=== PATIENT | male | born 1990 | race Caucasian/White ===

== ENCOUNTER 2017-09-03 05:35 | Emergency (ER) | payer SELFPAY ==
[~2017-09-03] VITALS: Ht 182.9 cm; Wt 127.0 kg
[~2017-09-03 05:35] MED LIST: ALBU2.5V4; CEFD300C3 PO; CODE118S2 PO; SLMFT1E INH
[2017-09-03] MEDS: NS IV 1000 ML 1,000 ML IV SCH ×3 (05:35→06:50)
--- OUTSIDE RECORDS SUMMARY | 2017-09-03 05:39 | XMS REPORT | Referral Summary ---
Author Author [facility] Organization [facility] Address Unknown Phone Unavailable Care Team Providers Care Manager Baby Name Role Phone No PCP, Pt States PCP Encounter [facility] [id number] Date(s): 05/09/16 - 05/09/16 [facility] [address] [place], [place] [address] Discharge Diagnosis: Conductive hearing loss of left ear Discharge Diagnosis: Central perforation of tympanic membrane of left ear Discharge Disposition: 01-Home or Self Care Attending Physician: Eliceo Monique MD Admitting Physician: Eliceo Monique MD Vital Signs Most recent to 1 oldest [Reference Range]: Temperature Tympanic 36.8 degC [36.6-38.1 degC] (05/09/16 1:22 PM) Problem List No data available for this section Allergies, Adverse Reactions, Alerts Substance Reaction Severity Status Keflex1 Severe Active 1Hives Medications Singulair 10 mg oral tablet 10 mg 1 tabs, Oral, qPM, # 30 tabs, 0 Refill(s) Start Date: 05/09/16 Status: Ordered Results No data available for this section Immunizations No data available for this section Procedures Procedure Date Related Diagnosis Body Site Myringotomy 1994 Social History Social History Type Response Smoking Status Former smoker Assessment and Plan Extracted from: Title: Office Visit Note Author: Eliceo Monique MD Date: 05/09/16 Assessment/Plan 1.Central perforation of tympanic membrane of left ear Patient would benefit from lefttympanoplastyand this will be scheduled [facility]. I went over the surgical procedure with patient includinggraft harvest sites from the tragus. We discussed postoperative ear canal packing for 7-10 days. He appears to understand all concepts and would like to proceed. Arrangements will be made with his institution. Ordered: Office Visit Level 4 Est 76241 2.Conductive hearing loss of left ear Left ear has a superimposed mild conductive hearing loss. Ordered: Office Visit Level 4 Est 04006
--- OUTSIDE RECORDS SUMMARY | 2017-09-03 05:39 | XMS REPORT | Referral Summary ---
Author Author [facility] Organization [facility] Address Unknown Phone Unavailable Care Team Providers Care Park Naturalist Name Role Phone Cady Cunningham PCP Encounter [facility] [id number] Date(s): 09/26/16 - 09/26/16 [facility] [address] [place], [place] [address] Discharge Diagnosis: Perforation of left tympanic membrane Discharge Disposition: 01-Home or Self Care Attending Physician: Eliceo Monique MD Admitting Physician: Eliceo Monique MD Referring Physician: Cady Cunningham MD Vital Signs Most recent to 1 oldest [Reference Range]: Respiratory Rate 54 br/min [14-20 br/min] *HI* (09/26/16 1:11 PM) SpO2 95 % (09/26/16 1:11 PM) Problem List No data available for this section Allergies, Adverse Reactions, Alerts Substance Reaction Severity Status Keflex1 Severe Active 1Hives Medications lisinopril 2.5 mg oral tablet 2.5 mg 1 tabs, Oral, Daily, # 30 tabs, 0 Refill(s) Start Date: 09/26/16 Status: Ordered simvastatin 10 mg oral tablet 10 mg 1 tabs, Oral, Bedtime (once a day), # 30 tabs, 0 Refill(s) Start Date: 09/26/16 Status: Ordered Singulair 10 mg oral tablet 10 mg 1 tabs, Oral, qPM, # 30 tabs, 0 Refill(s) Start Date: 05/09/16 Status: Ordered Results No data available for this section Immunizations No data available for this section Procedures Procedure Date Related Diagnosis Body Site Tissue grafts, other (eg, paratenon, fat, 07/01/16 dermis) Tympanoplasty without mastoidectomy 07/01/16 (including canalplasty, atticotomy and/or middle ear surgery), initial or revision; without ossicular chain reconstruction.. Social History Social History Type Response Smoking Status Former smoker Assessment and Plan Extracted from: Title: Office Visit Note Author: Eliceo Monique MD Date: 09/26/16 Assessment/Plan Perforation of left tympanic membrane Good postoperative appearance not requiring additional treatment. Patient has been assured accordingly and can report back for follow-up if any problem. He states that he believes he will be getting out of [facility] in June of this year. Ordered: Postoperative Est 58211
--- OUTSIDE RECORDS SUMMARY | 2017-09-03 05:39 | XMS REPORT | Continuity of Care Document ---
Author Author [facility] Address Unknown Phone Unavailable Allergies Active Description Code Type Severity Reaction Onset Reported/Identified Relationship to Patient Clinical Status Yes Keflex Drug Allergy N/A N/A 11/20/2009 Yes Penicillins Drug Allergy N/A N/A 11/20/2009 Yes Keflex Drug Allergy 11/20/2009 Yes Penicillins Drug Allergy 11/20/2009 Yes depakote 500 mg Tablet Drug Allergy N/A N/A 04/17/2012 Yes depakote 500 mg Tablet Drug Allergy 04/17/2012 Medications There is no data. Problems Date Dx Coded Attending Type Code Diagnosis Diagnosed By 11/20/2009 MILEY REEVES APRN 682.9 CELLULITIS AND ABSCESS OF UNSPECIFIED SITES 11/20/2009 SAE GONZALES DO 682.9 CELLULITIS AND ABSCESS OF UNSPECIFIED SITES 11/20/2009 682.9 CELLULITIS AND ABSCESS OF UNSPECIFIED SITES 11/20/2009 682.9 CELLULITIS AND ABSCESS OF UNSPECIFIED SITES 11/20/2009 MILEY REEVES APRN 682.9 CELLULITIS AND ABSCESS OF UNSPECIFIED SITES 11/20/2009 MARI TOSCANO MD 682.9 CELLULITIS AND ABSCESS OF UNSPECIFIED SITES 09/28/2011 MILEY REEVES APRN 786.2 COUGH 09/28/2011 SAE GONZALES DO 786.2 COUGH 09/28/2011 786.2 COUGH 09/28/2011 786.2 COUGH 09/28/2011 MILEY REEVES APRN 786.2 COUGH 09/28/2011 MARI TOSCANO MD 786.2 COUGH 03/13/2012 MILEY REEVES APRN 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 03/13/2012 MILEY REEVES APRN 250.00 DIABETES II CONTROLLED (UNCOMPLICATED) 03/13/2012 MILEY REEVES APRN 300.00 ANXIETY UNSPEC 03/13/2012 SAE GONZALES DO 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 03/13/2012 SAE GONZALES DO 250.00 DIABETES II CONTROLLED (UNCOMPLICATED) 03/13/2012 SAE GONZALES DO 300.00 ANXIETY UNSPEC 03/13/2012 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 03/13/2012 250.00 DIABETES II CONTROLLED (UNCOMPLICATED) 03/13/2012 300.00 ANXIETY UNSPEC 03/13/2012 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 03/13/2012 250.00 DIABETES II CONTROLLED (UNCOMPLICATED) 03/13/2012 300.00 ANXIETY UNSPEC 03/13/2012 MILEY REEVES APRN 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 03/13/2012 MILEY REEVES APRN 250.00 DIABETES II CONTROLLED (UNCOMPLICATED) 03/13/2012 MILEY REEVES APRN 300.00 ANXIETY UNSPEC 03/13/2012 MARI TOSCANO MD 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 03/13/2012 MARI TOSCANO MD 250.00 DIABETES II CONTROLLED (UNCOMPLICATED) 03/13/2012 MARI TOSCANO MD 300.00 ANXIETY UNSPEC 08/24/2012 SAE GONZALES DO 780.39 SEIZURES OTHER 08/24/2012 780.39 SEIZURES OTHER 08/24/2012 780.39 SEIZURES OTHER 08/24/2012 MILEY REEVES APRN 780.39 SEIZURES OTHER 08/24/2012 MARI TOSCANO MD 780.39 SEIZURES OTHER 05/07/2013 MILEY REEVES APRN 382.00 OTITIS MEDIA ACUTE SUPPURATIVE 05/07/2013 MARI TOSCANO MD 382.00 OTITIS MEDIA ACUTE SUPPURATIVE 07/09/2013 MARI TOSCANO MD 380.10 OTITIS EXTERNA LEFT Procedures Code [place] [address] CMP 08/24/2012 58571 URINE DRUG SCREEN (IN-HOUSE ) 08/24/2012 30102 TSH 08/24/2012 58368 CBC 08/24/2012 34289 EEG 08/24/2012 60576 A1C (IN-HOUSE) 05/07/2013 Results There is no data. Encounters ACCT No. Visit Date/Time Discharge Status Pt. Type Provider Facility Loc./Unit Complaint [id number] 07/09/2013 09:09:00 07/09/2013 23:59:59 CLS Outpatient MARI TOSCANO MD [id number] 05/07/2013 09:55:00 05/07/2013 23:59:59 CLS Outpatient MILEY REEVES APRN [id number] 08/24/2012 10:54:00 08/24/2012 23:59:59 CLS Outpatient SAE GONZALES DO [id number] 04/17/2012 09:37:00 04/17/2012 23:59:59 CLS Outpatient MILEY REEVES APRN [id number] 03/18/2013 13:10:00 Document Registration [id number] 01/22/2013 09:49:00 Document Registration
--- OUTSIDE RECORDS SUMMARY | 2017-09-03 05:39 | XMS REPORT | Referral Summary ---
Author Author [facility] Organization [facility] Address Unknown Phone Unavailable Care Team Providers Care Corporate Law Specialist Name Role Phone No PCP, Pt States PCP Encounter [facility] Date(s): 07/01/16 - 07/01/16 [facility] [address] [place], [place] [address] Discharge Diagnosis: Central perforation of tympanic membrane, left ear Discharge Disposition: 01-Home or Self Care Attending Physician: Eliceo Monique MD Admitting Physician: Eliceo Monique MD Vital Signs Most recent to 1 oldest [Reference Range]: Temperature Temporal 36.6 degC Artery [36.3-37.8 (07/01/16 7:38 AM) degC] Peripheral Pulse 44 bpm Rate [60-100 bpm] *LOW* (07/01/16 7:38 AM) Respiratory Rate 16 br/min [14-20 br/min] (07/01/16 7:38 AM) Blood Pressure 103/62 mmHg [90-140/60-90 mmHg] (07/01/16 7:38 AM) SpO2 98 % (07/01/16 7:38 AM) Problem List No data available for this section Allergies, Adverse Reactions, Alerts Substance Reaction Severity Status Keflex1 Severe Active 1Hives Medications HYDROcodone-acetaminophen 5 mg-325 mg oral tablet 1 tabs, Oral, q4hr, as needed for pain, # 12 tabs, 0 Refill(s) Start Date: 07/01/16 Status: Ordered Singulair 10 mg oral tablet 10 mg 1 tabs, Oral, qPM, # 30 tabs, 0 Refill(s) Start Date: 05/09/16 Status: Ordered Results Chemistry Most recent to 1 oldest [Reference Range]: Blood Glucose, 122 mg/dL Capillary [74-106 *HI* mg/dL] (07/01/16 7:51 AM) Immunizations No data available for this section Procedures Procedure Date Related Diagnosis Body Site Tissue grafts, other (eg, paratenon, fat, 07/01/16 dermis) Tympanoplasty without mastoidectomy 07/01/16 (including canalplasty, atticotomy and/or middle ear surgery), initial or revision; without ossicular chain reconstruction.. Social History Social History Type Response Smoking Status Former smoker Assessment and Plan Extracted from: Title: Ambulatory Patient Education Author: Hanna Sims RN, Date: 07/01/16 ACLS, BLS, PALS [facility] [phone] Post Operative Instructions Activities Ambulate_X_ Unrestricted Exercise__ None__ Light_x_ UnrestrictedOther: Do not strain or lift more than _ lbs. for _ weeks. Diet __ Liquids (Jell-O, soups, etc., if you are nauseated) __ Begin with liquids and light foods then progress to regular diet. _x_ Regular diet __ No alcoholic beverages for 24 hours or while taking pain medication. At Home care __ Remove dressing in ___hours_x_ Change dressing as necessary. Cotton ball in auditory meatus __ Keep dressing clean and dry.__ Do not change dressing until you see your doctor. __ Apply ice to area for ___ hours__ Avoid blowing nose. _X_ Keep water out of ears Other: If any problems occur or if you have any further questions, please contact your physician. In an emergency, call [phone] ([phone]), if you cannot reach your physician. If you find that you cannot contact your physician, but feel that your signs and symptoms warrant a physician s attention, go to an Emergency room which is the closest to you. Activities:Call your surgeon promptly if you have: _X_ Take Tylenol/Advil as needed for discomfort_X_ If fever over _103__ _x_ Prescription given for discomfort. Use as directed.__ Pain not relieved by pain medication __ Prescription given for antibiotic. Follow instructions__ Bleeding or unexpected drainage on label. Continue taking medication until gone. incision. __ Resume routine medications. __ Inability to urinate by: Next dose of pain medicine may be given at ___ Persistent nausea and vomiting. (Take with food to prevent stomach upset.)__ Ear drainage more than _2 Days __ Cough develops or difficulty breathing. Other: Do NOT drive or operate hazardous machinery for 24 hours or while taking pain medication. Do not sign any important documents or make important decisions for 24 hours following surgery. When taking pain medicine, be careful as you walk or climb stairs as dizziness is not unusual. Check temperature every four hours during the day for two days. ENT Tympanoplasty Your eardrum (tympanic membrane) is a thin layer of tissue that separates the outer part of your ear from your middle ear. Sometimes a hole can develop in your tympanic membrane. It can tear or become perforated. A hole in your tympanic membrane can allow water and germs to enter your middle ear and can cause infection and hearing loss. A small hole in your tympanic membrane that is not infected often heals by itself. A hole that does not heal on its own may require surgery (tympanoplasty) . This surgery repairs the hole with a piece of tissue from another part of your body (graft). Your caregiver usually will wait at least 6 weeks after the hole develops to see if it heals by itself. The most common causes of a hole developing in the tympanic membrane include: Infection. Injury. Puncture injury. Perforation caused by an object inserted too far into the ear, such as a cotton-tipped swab. Air pressure injury. Perforation caused by a sudden change in air pressure , such as during scuba diving. LET YOUR CAREGIVER KNOW ABOUT: History of bleeding disorders. Recent colds or infections you have had, particularly any drainage or moisture in your injured ear. Allergies you have to medicine, including numbing medicine (local anesthetics) and medicine to make you go to sleep (general anesthetic). All medicines you are taking, including herbs, zwkk-[id number]-[id number] medicines, and creams. Previous surgeries you have had. History of smoking. Possibility of , if this applies. History of blood clots. Other health problems. RISKS AND COMPLICATIONS Complications associated with tympanoplasty are rare, but they can occur. Possible complications include: Dizziness or a feeling that things are spinning around you (vertigo). Bleeding or infection in the ear. Damage to the small bones in your ear, which can cause hearing loss. Nerve damage. A small nerve that transmits taste from the sides of your tongue goes through the middle part of your ear. If this nerve is damaged during surgery, you may have a metal taste in your mouth. It usually goes away in time. Graft failure. This means that the graft does not attach to the tympanic membrane. BEFORE THE PROCEDURE Your caregiver will: Examine your ear before surgery to ensure that your tympanic membrane is dry. Test your hearing(audiometry). Do an X-ray if there is any signs of infection. You will need to stop eating and drinking 8 hours before the surgery. Also, you may need to stop taking certain medicines before the surgery. Ask your caregiver for specific instructions. Just before your procedure, you will speak with an anesthesiologist. This is the person who will administer the anesthetic. Your anesthesiologist will talk to you about the type of anesthetic that will be used. Usually, tympanoplasty is performed with the use of a general anesthetic. Small monitors will be placed on your body to check your heart rate, blood pressure, and oxygen level. An intravenous (IV) tube will be inserted in your arm or hand. Medicine will flow directly into your body through the IV tube. PROCEDURE To repair a hole in your tympanic membrane, a graftis used. The graft will act as a patch. Most of the time, the graft comes from your scalp. To put the graft in place, a cut (incision) is made in your ear canal, and the graft is slipped under the hole in the tympanic membrane. Dissolvable sponges are placed in your middle ear and in your ear canal to hold the graft in place. The surgery usually takes 1 to 2 hours. Antibiotic drops may be used in your ear to prevent infection. A cotton ball is placed over the opening of your ear. AFTER THE PROCEDURE You will be taken to a recovery area until the anesthesia has worn off. Your blood pressure and pulse will be checked regularly. The IV tube will be taken out. Some pain is normal after tympanoplasty. You may be given pain medicine while you are in the recovery area. Most people can go home a few hours after surgery. This information is not intended to replace advice given to you by your health care provider. Make sure you discuss any questions you have with your health care provider. Document Released: 12/23/2011 Document Revised: 11/11/2013 Document Reviewed: [employer] Interactive Patient Education 2016 [employer] Follow Up With: Where: When: [facility]; [facility] [place] [phone] Business (1) Within 1 to 2 weeks Comments:
--- OUTSIDE RECORDS SUMMARY | 2017-09-03 05:39 | XMS REPORT | Referral Summary ---
Author Author [facility] Organization [facility] Address Unknown Phone Unavailable Care Team Providers Care Information Systems Consultant Name Role Phone No PCP, Pt States PCP Encounter [facility] [id number] Date(s): 02/29/16 - 02/29/16 [facility] [address] [place], [place] [address] [place] [address] Discharge Diagnosis: Chronic otitis media of left ear with perforated tympanic membrane Discharge Diagnosis: History of Eustachian tube dysfunction Discharge Disposition: 01-Home or Self Care Attending Physician: Eliceo Monique MD Admitting Physician: Eliceo Monique MD Vital Signs Most recent to 1 oldest [Reference Range]: Temperature Tympanic 37.6 degC [36.6-38.1 degC] (02/29/16 12:56 PM) Problem List No data available for this section Allergies, Adverse Reactions, Alerts Substance Reaction Severity Status Keflex1 Severe Active 1Hives Medications No Known Medications Results No data available for this section Immunizations No data available for this section Procedures Procedure Date Related Diagnosis Body Site Excision aural polyp.. 02/29/16 Myringotomy 1994 Social History Social History Type Response Smoking Status Former smoker Assessment and Plan Extracted from: Title: Office Visit Note Author: Eliceo Monique MD Date: 02/29/16 Assessment/Plan 1.Chronic otitis media of left ear with perforated tympanic membrane Tympanostomy tube along withthe oral polyp had been removed. He will keep the ear dry. He will report back for follow-up examination in 2-3 months to see if resolution of perforation is occurring. If not patient may require left tympanoplasty. I went over the surgical procedure with patient describing the same. Ordered: compre audiometry threshold eval sp recognij 63276 Excision Aural Polyp 17350 Office New Consult Level 4 77862 Tympanometry (Impedance Testing) 47382 2.History of Eustachian tube dysfunction There is no evidence of eustachian tube dysfunction now present with the right ear showing normal pressure and movement. I would expect the left tube likewise been normaland the chronicintermittent infectionrelated to the retained tympanostomy tube and aural polyp. Ordered: compre audiometry threshold eval sp recognij 99633 Excision Aural Polyp 17566 Office New Consult Level 4 09427 Tympanometry (Impedance Testing) 99621
[2017-09-03 05:40] VITALS: BP 99/60
[2017-09-03 05:50] VITALS: BP 90/51
[2017-09-03 05:57] LABS: HEMOGLOBIN 14.3 G/DL (13.3-17.7); MEAN PLATELET VOLUME 12.2 FL (7.4-10.4); RED BLOOD COUNT 4.55 10^6/uL (4.35-5.85); RED CELL DISTRIBUTION WIDTH 13.5 % (10.0-14.5); WHITE BLOOD COUNT 21.7 10^3/uL (4.3-11.0)
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
[2017-09-03 06:14] LABS: INR 1.3 (0.8-1.4); PROTHROMBIN TIME PATIENT 15.9 SEC (12.2-14.7)
[2017-09-03 06:24] LABS: ALANINE AMINOTRANSFERASE 353 U/L (0-55); ALBUMIN 3.8 GM/DL (3.2-4.5); ALKALINE PHOSPHATASE 66 U/L (40-136); BILIRUBIN,DIRECT 0.6 MG/DL (0.0-0.3); BILIRUBIN,INDIRECT 1.3 MG/DL; BILIRUBIN,TOTAL 1.9 MG/DL (0.1-1.0); BUN/CREATININE RATIO 11; CALCIUM 8.1 MG/DL (8.5-10.1); CARBON DIOXIDE 19 MMOL/L (21-32); CHLORIDE 105 MMOL/L (98-107); CREATINE KINASE 630 U/L (30-200); CREATININE SERUM 1.08 MG/DL (0.60-1.30); GFR ESTIMATED > 60; GLUCOSE 179 MG/DL (70-105); MAGNESIUM 2.5 MG/DL (1.8-2.4); PHOSPHORUS 4.5 MG/DL (2.3-4.7); POTASSIUM 3.2 MMOL/L (3.6-5.0); SODIUM 138 MMOL/L (135-145); TOTAL PROTEIN 6.8 GM/DL (6.4-8.2)
[2017-09-03] MEDS ORDERED: LORazepam INJ 2 MG/ML (ATIVAN) VIAL ONE (06:59)
[2017-09-03 07:02] LABS: BILIRUBIN,URINE NEGATIVE (NEGATIVE); CLARITY,URINE CLEAR; COLOR,URINE AMBER; GLUCOSE, URINE (UA) NEGATIVE (NEGATIVE); KETONES,URINE NEGATIVE (NEGATIVE); LEUKOCYTE ESTERASE ,URINE NEGATIVE (NEGATIVE); NITRITE,URINE NEGATIVE (NEGATIVE); PH,URINE 6.5 (5-9); PROTEIN,URINE 2+ (NEGATIVE); UROBILINOGEN,URINE NORMAL (NORMAL)
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
[2017-09-03] MEDS ORDERED: NS 250 ML (IVPB) BAG IV ONE (07:15)
[2017-09-03] MEDS ORDERED: IOHEXOL 350 MG/ML 100 ML (OMNIPAQUE 350) VIAL IV ONE (07:15)
[2017-09-03] MEDS ORDERED: ONDANSETRON 4 MG/2 ML (SDV) Z0FRAN ONE (07:16)
[2017-09-03 07:17] LABS: AMPHETAMINE SCREEN, URINE NEGATIVE (NEGATIVE); BARBITURATE SCREEN URINE NEGATIVE (NEGATIVE); BENZODIAZEPINES SCREEN URINE NEGATIVE (NEGATIVE); CANNABINOID SCREEN, URINE NEGATIVE (NEGATIVE); COCAINE SCREEN URINE NEGATIVE (NEGATIVE); METHADONE STAT NEGATIVE (NEGATIVE); METHAMPHETAMINE SCREEN URINE S NEGATIVE (NEGATIVE); OPIATE SCREEN URINE NEGATIVE (NEGATIVE); OXYCODONE STAT NEGATIVE (NEGATIVE); PROPOXYPHENE STAT NEGATIVE (NEGATIVE); TRICYCLIC ANTIDEPRESSANTS SCRE NEGATIVE (NEGATIVE)
[2017-09-03 07:19] LABS: RBC,URINE RARE /HPF; WBC,URINE 0-2 /HPF
[2017-09-03 07:20] LABS: BACTERIA,URINE TRACE /HPF; SQUAMOUS EPITHELIAL CELL,UR 0-2 /HPF
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
[2017-09-03 07:45] VITALS: BP 94/47
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
[2017-09-03] MEDS ORDERED: NS IV 1000 ML 1,000 ML IV SCH ×2 (08:30)
[2017-09-03] MEDS ORDERED: ceFAZolin INJECTION 1,000 MG in NS (IVPB) 50 ML IV ONE (08:30)
== END 2017-09-03 07:45 | disposition short-term general hospital (02) ==
LOC: EDUNIT# 05:35 → ER 05:36
DX: S36.113A Laceration of liver, unspecified degree, initial encounter (principal); S37.031A Laceration of right kidney, unspecified degree, initial encounter; S32.058A Other fracture of fifth lumbar vertebra, initial encounter for closed fracture; S72.32 Transverse fracture of shaft of femur; S32.592A Other specified fracture of left pubis, initial encounter for closed fracture; S32.512A Fracture of superior rim of left pubis, initial encounter for closed fracture; S01.111A Laceration without foreign body of right eyelid and periocular area, initial encounter; R57.1 Hypovolemic shock; I95.9 Hypotension, unspecified; R79.89 Other specified abnormal findings of blood chemistry; E87.2 Acidosis; E83.51 Hypocalcemia; E83.41 Hypermagnesemia; E87.6 Hypokalemia; F10.129 Alcohol abuse with intoxication, unspecified; R40.2142 Coma scale, eyes open, spontaneous, at arrival to emergency department; R40.2252 Coma scale, best verbal response, oriented, at arrival to emergency department; R40.2362 Coma scale, best motor response, obeys commands, at arrival to emergency department; F17.200 Nicotine dependence, unspecified, uncomplicated; Z88.1 Allergy status to other antibiotic agents; V43.52XA Car driver injured in collision with other type car in traffic accident, initial encounter
CPT/HCPCS: 31500; 36415; 36430; 51702; 70450; 71045; 71260; 72125; 72170; 73552; 74177; 80048; 80076; 80306; 80320; 81000; 82550; 83605; 83735; 84100; 84484; 85027; 85384; 85610; 85730; 86850; 86900; 86901; 86920; 96361; 96374; 96375; 99291; 99292

== ENCOUNTER 2017-09-15 12:05 | Inpatient (IN) | payer OTHER ==
[~2017-09-15] VITALS: Ht 172.7 cm; Wt 69.2 kg
[2017-09-15 16:35] VITALS: BP 131/56
[2017-09-15] MEDS: HYDROcodone/APAP 10 MG/325 MG (LORTAB) TAB PO PRN ×2 (17:13→21:04)
--- OUTSIDE RECORDS SUMMARY | 2017-09-15 17:30 | XMS REPORT | Continuity of Care Document ---
Author Author [facility] Address Unknown Phone Unavailable Allergies Active Description [...] Procedures Code [place] [address] CMP 08/24/2012 57102 URINE DRUG SCREEN (IN-HOUSE ) 08/24/2012 48742 TSH 08/24/2012 11223 CBC 08/24/2012 22372 EEG 08/24/2012 45315 A1C (IN-HOUSE) 05/07/2013 Results There is no data. Encounters ACCT No. Visit Date/Time Discharge Status Pt. Type Provider Facility Loc./Unit Complaint [id number] 07/09/2013 09:09:00 07/09/2013 23:59:59 CLS Outpatient MARI TOSCANO MD [id number] 05/07/2013 09:55:00 05/07/2013 23:59:59 CLS Outpatient MILEY REEVES APRN [id number] 08/24/2012 10:54:00 08/24/2012 23:59:59 CLS Outpatient SAE GONZALES DO [id number] 04/17/2012 09:37:00 04/17/2012 23:59:59 CLS Outpatient MILEY REEVES APRN [id number] 03/18/2013 13:10:00 Document Registration [id number] 01/22/2013 09:49:00 Document Registration
--- NOTE | 2017-09-15 17:32 | PM&R Post Admission Assessment ---
Post Admission Physician Asses The preadmission screen agrees with the post admission assessment that the patient is a good candidate for inpatient rehabilitation. The patient will have a comprehensive program of inpatient rehabilitation with a goal of maximizing level of functional independence prior to discharge home with family and HHC. The patient will have PT/OT ninety minutes per day, each discipline, five days a week for gait, strengthening, conditioning, balance, ADLs, any patient/family/caregiver training as necessary. Speech therapy to do cognitive assessment and treat as indicated. Rehabilitation nursing to assist with bowel, bladder, skin, wound care, medication administration, pain management. Felled Seam Operator to assist with discharge planning, community reentry. Lovenox SUBCUT for DVT prophylaxis. He appears to be well motivated to participate in three hours of therapy a day. He should be able to tolerate three hours of therapy a day from a medical and surgical standpoint. He should benefit from the three hours of therapy a day. He has a reasonable discharge plan, reasonable discharge rehabilitation goals and a supportive family. He has various comorbidities that need to be closely monitored with medications and treatments adjusted on a daily basis as needed. These include: ETOH abuse Barriers to discharge for this patient who had been independent prior to this are for him to be supervision to min assist for ADLs and mobility skills ( due to Limitations in WBS RLE and LUE)prior to discharge home with family and HHC, so as to lessen the burden of the caregivers. Risks for this patient include: 1. Fall 2. Fracture 3. DVT 4. Pulmonary embolism 5. Wound infection 6. Skin breakdown 7. Contractures 8. Poorly controlled pain 9. Urinary retention 10. UTI 11. Respiratory infection 12. Aspiration Estimated Length of Stay: 14 days Prognosis: Rehab prognosis appears good for goal of discharge home with family and HHC at the w/c level supervision to min assistfor ADLs and mobility skills. ( DUE to ortho WB restrictions) CHIARA FONTAINE MD Sep 15, 2017 17:32
[2017-09-15] MEDS: ENOXAPARIN 40 MG/0.4 ML (LOVENOX) SYR SC SCH (18:03)
[2017-09-15] MEDS: fentaNYL PATCH 50 MCG (DURAGESIC) TD SCH (18:31)
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
[2017-09-15] MEDS ORDERED: INFLUENZA TRIvalent 2017-2018 0.5 ML/45 MCG SYR IM ONE (19:15)
[2017-09-16] MEDS: HYDROcodone/APAP 10 MG/325 MG (LORTAB) TAB PO PRN ×5 (02:15→19:57)
[2017-09-16 05:28] VITALS: BP 116/68
[2017-09-16 06:06] LABS: BASOPHILS # (AUTO) 0.2 10^3/uL (0.0-0.1); BASOPHILS % (AUTO) 1 % (0-10); EOSINOPHILS # (AUTO) 0.4 10^3/uL (0.0-0.3); EOSINOPHILS % (AUTO) 2 % (0-10); HEMATOCRIT 34 % (40-54); LYMPHOCYTES # (AUTO) 3.5 X 10^3 (1.0-4.0); LYMPHOCYTES % (AUTO) 18 % (12-44); MEAN CORPUSCULAR HEMOGLOBIN 30 PG (25-34); MEAN CORPUSCULAR HGB CONC 32 G/DL (32-36); MEAN CORPUSCULAR VOLUME 94 FL (80-99); MEAN PLATELET VOLUME 12.1 FL (7.4-10.4); MONOCYTES # (AUTO) 2.1 X 10^3 (0.0-1.0); MONOCYTES % (AUTO) 11 % (0-12); NEUTROPHILS # (AUTO) 13.4 X 10^3 (1.8-7.8); NEUTROPHILS % (AUTO) 68 % (42-75); PLATELET COUNT 982 10^3/uL (130-400); RED BLOOD COUNT 3.63 10^6/uL (4.35-5.85); RED CELL DISTRIBUTION WIDTH 16.2 % (10.0-14.5); WHITE BLOOD COUNT 19.6 10^3/uL (4.3-11.0)
[2017-09-16 06:26] LABS: ANISOCYTOSIS SLIGHT; BAND NEUTROPHILS 0 %; BASOPHILS % (MANUAL) 1 %; EOSINOPHILS % (MANUAL) 5 %; LYMPHOCYTES % (MANUAL) 16 %; MONOCYTES % (MANUAL) 10 %; NEUTROPHILS % (MANUAL) 68 %; POIKILOCYTOSIS SLIGHT; POLYCHROMASIA SLIGHT
[2017-09-16 06:51] LABS: ALANINE AMINOTRANSFERASE 39 U/L (0-55); ALBUMIN 3.2 GM/DL (3.2-4.5); ALKALINE PHOSPHATASE 537 U/L (40-136); BILIRUBIN,TOTAL 1.9 MG/DL (0.1-1.0); BUN/CREATININE RATIO 16; CALCIUM 8.6 MG/DL (8.5-10.1); CARBON DIOXIDE 24 MMOL/L (21-32); CHLORIDE 101 MMOL/L (98-107); GFR ESTIMATED > 60; GLUCOSE 132 MG/DL (70-105); POTASSIUM 4.8 MMOL/L (3.6-5.0); SODIUM 136 MMOL/L (135-145)
[2017-09-16] MEDS ORDERED: FENTANYL PATCH REMOVAL TP SCH (08:59)
[2017-09-16] MEDS ORDERED: fentaNYL PATCH 50 MCG (DURAGESIC) TD SCH (09:00)
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
[2017-09-16] MEDS: ENOXAPARIN 40 MG/0.4 ML (LOVENOX) SYR SC SCH (16:54)
[2017-09-16 18:00] VITALS: BP 129/72
[2017-09-17] MEDS: HYDROcodone/APAP 10 MG/325 MG (LORTAB) TAB PO PRN ×6 (00:14→21:34)
[2017-09-17 04:36] VITALS: BP 109/68
[2017-09-17] MEDS ORDERED: fentaNYL PATCH 50 MCG (DURAGESIC) TD SCH (09:00)
[2017-09-17] MEDS ORDERED: HYDR-3820 PO (14:23)
[2017-09-17] MEDS ORDERED: FENT1PAT58 TD (14:23)
[2017-09-17] MEDS: ENOXAPARIN 40 MG/0.4 ML (LOVENOX) SYR SC SCH (17:10)
[2017-09-17 17:37] VITALS: BP 117/73
[2017-09-17] MEDS ORDERED: DOCUSATE SODIUM 100 MG (COLACE) CAP PO PRN (21:15)
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
[2017-09-18] MEDS: HYDROcodone/APAP 10 MG/325 MG (LORTAB) TAB PO PRN ×4 (05:27→22:31)
[2017-09-18 05:31] VITALS: BP 118/67
[2017-09-18 05:42] LABS: BASOPHILS # (AUTO) 0.2 10^3/uL (0.0-0.1); BASOPHILS % (AUTO) 2 % (0-10); EOSINOPHILS # (AUTO) 0.4 10^3/uL (0.0-0.3); EOSINOPHILS % (AUTO) 3 % (0-10); HEMATOCRIT 34 % (40-54); HEMOGLOBIN 11.1 G/DL (13.3-17.7); LYMPHOCYTES # (AUTO) 3.6 X 10^3 (1.0-4.0); LYMPHOCYTES % (AUTO) 26 % (12-44); MEAN CORPUSCULAR HEMOGLOBIN 30 PG (25-34); MEAN CORPUSCULAR HGB CONC 32 G/DL (32-36); MEAN CORPUSCULAR VOLUME 94 FL (80-99); MEAN PLATELET VOLUME 11.5 FL (7.4-10.4); MONOCYTES # (AUTO) 2.1 X 10^3 (0.0-1.0); MONOCYTES % (AUTO) 15 % (0-12); NEUTROPHILS # (AUTO) 7.6 X 10^3 (1.8-7.8); NEUTROPHILS % (AUTO) 55 % (42-75); RED BLOOD COUNT 3.66 10^6/uL (4.35-5.85); RED CELL DISTRIBUTION WIDTH 15.6 % (10.0-14.5); WHITE BLOOD COUNT 13.9 10^3/uL (4.3-11.0)
[2017-09-18 05:53] LABS: PLATELET COUNT 1068 10^3/uL (130-400)
[2017-09-18 06:05] LABS: ALANINE AMINOTRANSFERASE 29 U/L (0-55); ALBUMIN 3.3 GM/DL (3.2-4.5); ALKALINE PHOSPHATASE 681 U/L (40-136); BILIRUBIN,TOTAL 1.4 MG/DL (0.1-1.0); BUN/CREATININE RATIO 21; CARBON DIOXIDE 26 MMOL/L (21-32); CHLORIDE 100 MMOL/L (98-107); GFR ESTIMATED > 60; GLUCOSE 132 MG/DL (70-105); POTASSIUM 4.5 MMOL/L (3.6-5.0); SODIUM 135 MMOL/L (135-145); TOTAL PROTEIN 7.3 GM/DL (6.4-8.2)
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
[2017-09-18] MEDS: POLYETHYLENE GLYCOL 17 GM (MIRALAX) PACK PO SCH (10:45)
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
--- NOTE | 2017-09-18 17:02 | Occupational Ther Daily Note ---
OT Current Status-Daily Note Subjective Pt. winces with pain but does not report pain level. Appearance Pt. up in chair. Agrees to shower. Mental Status/Objective Patient Orientation: Person, Place Functional [place] Measure 0=Not Assessed/NA 4=Minimal Assistance 1=Total Assistance 5=Supervision or Setup 2=Maximal Assistance 6=Modified [place] 3=Moderate Assistance 7=Complete [place] ADL-Treatment Functional [place] Measure 0=Not Assessed/NA 4=Minimal Assistance 1=Total Assistance 5=Supervision or Setup 2=Maximal Assistance 6=Modified [place] 3=Moderate Assistance 7=Complete IndependenceIRFPAI Quality Coding Scale 6 Independent with activity with or without an assistive device 5 Patient requires set up or clean up by helper. Patient completes activity by themselves 4 Supervision or touching assist (CGA). [place] provide cues , steadying assist 3 The helper provides less than half the effort to complete the activity 2 The helper provides more than half the effort to complete the activity 1 Dependent. The helper does all the effort to complete an activity 7 Patient refused to complete or attempt activity 9 The patient did not perform the activity before the current illness or injury 88 Not attempted due to Medical conditions or safety concerns Bathing (FIM): 4 (Min assist to dry bottom after shower, and left foot.) Shower/Bathe Self (QC): 4 Upper Body (FIM): 5 Upper Body Dressing (QC): 5 Lower Body Dressing (FIM): 2 (Max assist overall to doff boxer shorts and shorts, sock on left foot. OT also changed knee brace for shower for pt., but kept it dry.) Lower Body Dressing (QC): 2 On/Off Footwear (QC): 1 Transfers (B, C, W/C) (FIM): 3 (Mod assist overall to transfer to and from wheelchair and shower chair.) Shower Transfer(FIM): 3 Education OT Patient Education: Correct positioning, Modified ADL techniques, Progress toward Goal/Update tx plan, Purpose of tx/functional activities, Reviewed precautions, Rehab process, Transfer techniques Teaching Recipient: Patient Teaching Methods: Demonstration, Discussion Response to Teaching: Verbalize Understanding, Return Demonstration OT Short Term Goals Short Term Goals Time Frame: Sep 22, 2017 Eating(FIM): 7 Grooming(FIM): 7 Bathing(FIM): 6 Upper Body Dressing(FIM): 7 Lower Body Dressing(FIM): 5 Toileting(FIM): 5 Transfers (B,C,W/C) (FIM): 5 Toilet/Commode Transfer(FIM): 5 Shower Transfer(FIM): 5 1=Demonstrate adherence to instructed precautions during ADL tasks. 2=Patient will verbalize/demonstrate understanding of assistive devices/ modifications for ADL. 3=Patient will improve strength/tolerance for activity to enable patient to perform ADL's. OT Corporate Attorney Goals Senior Care Goals Time Frame: Sep 30, 2017 Eating (FIM): 7 Eating (QC): 6 Groomin Oral Hygiene (QC): 6 Bathing(FIM): 7 Shower/Bathe Self (QC): 6 Upper Body Dressing(FIM): 7 Upper Body Dressing (QC): 6 Lower Body Dressing(FIM): 7 Lower Body Dressing (QC): 6 On/Off Footwear (QC): 4 Toileting(FIM): 7 Toileting Hygiene (QC): 6 Transfers (B,C,W/C) (FIM): 7 Toilet/Commode Transfer(FIM): 7 Toilet/Commode Transfer (QC): 7 Shower Transfer(FIM): 7 1=Demonstrate adherence to instructed precautions during ADL tasks. 2=Patient will verbalize/demonstrate understanding of assistive devices/ modifications for ADL. 3=Patient will improve strength/tolerance for activity to enable patient to perform ADL's. OT Education/Plan Problem List/Assessment Assessment: Decreased Activ Tolerance, Dependent Transfers, Impaired Bed Mobility, Impaired Funct Balance, Impaired I ADL's, Impaired Self-Care Skills Discharge Recommendations Plan/Recommendations: Continue POC Therapy D/C Recommendations: Home Independently Equpiment Recommendations-D/C: Hip Kit Treatment Plan/Plan of Care Treatment,Training & Education: Yes Patient would benefit from OT for education, treatment and training to promote independence in ADL's, mobility, safety and/or upper extremity function for ADL' s. Plan of Care: ADL Retraining, Functional Mobility, Group Exercise/Act as Ind Treatment Duration: Sep 30, 2017 Frequency: At least 5 of 7 days/Wk (IRF) Estimated Hrs Per Day: 1.5 hours per day Agreement: Yes Rehab Potential: Good Time/GCodes Start Time: 11:00 Stop Time: 12:00 Total Time Billed (hr/min): 60 Billed Treatment Time 1, ADL x 4 BILLY BLANTON OT Sep 18, 2017 17:02
[2017-09-18] MEDS: ENOXAPARIN 40 MG/0.4 ML (LOVENOX) SYR SC SCH (17:21)
[2017-09-18] MEDS ORDERED: FENTANYL PATCH REMOVAL TP SCH (17:59)
[2017-09-18 18:00] VITALS: BP 115/63
[2017-09-19] MEDS: HYDROcodone/APAP 10 MG/325 MG (LORTAB) TAB PO PRN ×5 (04:45→21:41)
[2017-09-19 05:20] VITALS: BP 128/73
[2017-09-19 06:05] LABS: BASOPHILS # (AUTO) 0.1 10^3/uL (0.0-0.1); BASOPHILS % (AUTO) 1 % (0-10); EOSINOPHILS # (AUTO) 0.4 10^3/uL (0.0-0.3); EOSINOPHILS % (AUTO) 1 % (0-10); HEMATOCRIT 35 % (40-54); HEMOGLOBIN 11.4 G/DL (13.3-17.7); LYMPHOCYTES # (AUTO) 2.8 X 10^3 (1.0-4.0); LYMPHOCYTES % (AUTO) 11 % (12-44); MEAN CORPUSCULAR HEMOGLOBIN 30 PG (25-34); MEAN CORPUSCULAR HGB CONC 33 G/DL (32-36); MEAN CORPUSCULAR VOLUME 93 FL (80-99); MONOCYTES # (AUTO) 2.9 X 10^3 (0.0-1.0); MONOCYTES % (AUTO) 11 % (0-12); NEUTROPHILS # (AUTO) 20.3 X 10^3 (1.8-7.8); NEUTROPHILS % (AUTO) 77 % (42-75); RED BLOOD COUNT 3.76 10^6/uL (4.35-5.85); RED CELL DISTRIBUTION WIDTH 15.3 % (10.0-14.5); WHITE BLOOD COUNT 26.5 10^3/uL (4.3-11.0)
[2017-09-19 06:07] LABS: PLATELET COUNT 1054 10^3/uL (130-400)
[2017-09-19 06:24] LABS: ANISOCYTOSIS SLIGHT; BAND NEUTROPHILS 1 %; BASOPHILS % (MANUAL) 0 %; EOSINOPHILS % (MANUAL) 3 %; HYPOCHROMASIA SLIGHT; LYMPHOCYTES % (MANUAL) 12 %; MONOCYTES % (MANUAL) 6 %; NEUTROPHILS % (MANUAL) 77 %; POLYCHROMASIA SLIGHT; REACTIVE LYMPHOCYTES 1 %
[2017-09-19 06:33] LABS: ALANINE AMINOTRANSFERASE 26 U/L (0-55); ALBUMIN 3.4 GM/DL (3.2-4.5); ALKALINE PHOSPHATASE 762 U/L (40-136); BILIRUBIN,TOTAL 1.6 MG/DL (0.1-1.0); BUN/CREATININE RATIO 19; CALCIUM 9.2 MG/DL (8.5-10.1); CARBON DIOXIDE 25 MMOL/L (21-32); CHLORIDE 100 MMOL/L (98-107); CREATININE SERUM 0.73 MG/DL (0.60-1.30); GFR ESTIMATED > 60; GLUCOSE 124 MG/DL (70-105); POTASSIUM 4.2 MMOL/L (3.6-5.0); SODIUM 136 MMOL/L (135-145); TOTAL PROTEIN 7.4 GM/DL (6.4-8.2)
[2017-09-19] MEDS: POLYETHYLENE GLYCOL 17 GM (MIRALAX) PACK PO SCH (08:27)
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
[2017-09-19] MEDS ORDERED: LOPERAMIDE 2 MG (IMODIUM) CAP PO PRN (13:45)
--- NOTE | 2017-09-19 14:14 | Occupational Ther Daily Note ---
OT Current Status-Daily Note Subjective Pt. reports pain throughout treatment. Does not state a pain level. However, let nursing know. Nursing states that it is not time for medication. Appearance Pt. in chair. Declines showering at first. Agrees to shower when OT offers to do exercises with him. Mental Status/Objective Patient Orientation: Person, Place Functional [place] Measure 0=Not Assessed/NA 4=Minimal Assistance 1=Total Assistance 5=Supervision or Setup 2=Maximal Assistance 6=Modified [place] 3=Moderate Assistance 7=Complete [place] ADL-Treatment Functional [place] Measure 0=Not Assessed/NA 4=Minimal Assistance 1=Total Assistance 5=Supervision or Setup 2=Maximal Assistance 6=Modified [place] 3=Moderate Assistance 7=Complete IndependenceIRFPAI Quality Coding Scale 6 Independent with activity with or without an assistive device 5 Patient requires set up or clean up by helper. Patient completes activity by themselves 4 Supervision or touching assist (CGA). [place] provide cues , steadying assist 3 The helper provides less than half the effort to complete the activity 2 The helper provides more than half the effort to complete the activity 1 Dependent. The helper does all the effort to complete an activity 7 Patient refused to complete or attempt activity 9 The patient did not perform the activity before the current illness or injury 88 Not attempted due to Medical conditions or safety concerns Bathing (FIM): 4 (Min assist to bathe left foot.) Shower/Bathe Self (QC): 4 Upper Body (FIM): 5 Upper Body Dressing (QC): 4 Lower Body Dressing (FIM): 2 (OT dresses pt. Pt. declines practicing equipment. States that his mother will do this for him at home. Ot dons left sock, leg brace, boxer shorts, and shorts. Pt. is able to assist to stand but OT pulls them up for him.) Lower Body Dressing (QC): 2 On/Off Footwear (QC): 1 Toileting (FIM): 3 (OT pulls down and up boxers and shorts in half stance. However, pt. is able to clean himself on toilet.) Toileting Hygiene (QC): 3 Transfers (B, C, W/C) (FIM): 3 (Pt. requires mod assist when standing/pivoting , and min assist when using slide board.) Toilet/Commode Transfer (FIM): 3 Toilet Transfer (QC): 3 Shower Transfer(FIM): 3 Pt. requires encouragement throughout treatment. Becomes frustrated to have to do for self. States that his mother will do his dressing for him. Pt. becomes frustrated throughout treatment. Becomes frustrated that he was sent a second food tray. States that the food is "no good" here. Frustrated that his shirt came back wrinkled after it was laundered. Pt. is frustrated when OT wraps his legs too tight with plastic when attempting to keep them dry. Pt. states multiple times that he is ready to get "out of here." Pt. is adamant that his mother is ready for him to come home. States that he will need a wheelchair with extending leg rest. When prompted, pt. states that he will need a slide board and possibly a shower chair and hospital bed as well. OT lets him know that she will talk with social work to attempt to set this up. Pt. states that this will be good. Education OT Patient Education: Correct positioning, Modified ADL techniques, Progress toward Goal/Update tx plan, Purpose of tx/functional activities, Reviewed precautions, Rehab process, Transfer techniques Teaching Recipient: Patient Teaching Methods: Demonstration, Discussion Response to Teaching: Verbalize Understanding, Return Demonstration OT Short Term Goals Short Term Goals Time Frame: Sep 22, 2017 Eating(FIM): 7 Grooming(FIM): 7 Bathing(FIM): 6 Upper Body Dressing(FIM): 7 Lower Body Dressing(FIM): 5 Toileting(FIM): 5 Transfers (B,C,W/C) (FIM): 5 Toilet/Commode Transfer(FIM): 5 Shower Transfer(FIM): 5 1=Demonstrate adherence to instructed precautions during ADL tasks. 2=Patient will verbalize/demonstrate understanding of assistive devices/ modifications for ADL. 3=Patient will improve strength/tolerance for activity to enable patient to perform ADL's. OT Community Relations Police Lieutenant Goals Detention Goals Time Frame: Sep 30, 2017 Eating (FIM): 7 Eating (QC): 6 Groomin Oral Hygiene (QC): 6 Bathing(FIM): 7 Shower/Bathe Self (QC): 6 Upper Body Dressing(FIM): 7 Upper Body Dressing (QC): 6 Lower Body Dressing(FIM): 7 Lower Body Dressing (QC): 6 On/Off Footwear (QC): 4 Toileting(FIM): 7 Toileting Hygiene (QC): 6 Transfers (B,C,W/C) (FIM): 7 Toilet/Commode Transfer(FIM): 7 Toilet/Commode Transfer (QC): 7 Shower Transfer(FIM): 7 1=Demonstrate adherence to instructed precautions during ADL tasks. 2=Patient will verbalize/demonstrate understanding of assistive devices/ modifications for ADL. 3=Patient will improve strength/tolerance for activity to enable patient to perform ADL's. OT Education/Plan Problem List/Assessment Assessment: Decreased Activ Tolerance, Dependent Transfers, Impaired I ADL's, Impaired Self-Care Skills Discharge Recommendations Plan/Recommendations: Continue POC Therapy D/C Recommendations: Home w/ Family Support Comment Pt. would benefit from wheelchair with elevating leg rest, and slide board. Treatment Plan/Plan of Care Treatment,Training & Education: Yes Patient would benefit from OT for education, treatment and training to promote independence in ADL's, mobility, safety and/or upper extremity function for ADL' s. Plan of Care: ADL Retraining, Functional Mobility, Group Exercise/Act as Ind Treatment Duration: Sep 30, 2017 Frequency: At least 5 of 7 days/Wk (IRF) Estimated Hrs Per Day: 1.5 hours per day Agreement: Yes Rehab Potential: Good Time/GCodes Start Time: 10:30 Stop Time: 11:30 Total Time Billed (hr/min): 60 Billed Treatment Time 1, ADL x 4 BILLY BLANTON OT Sep 19, 2017 14:14
--- NOTE | 2017-09-19 14:21 | Occupational Ther Daily Note ---
OT Current Status-Daily Note Subjective Pt. does not report pain level, but at first, refuses to work with OT stating, "my leg f ing hurts!" Nursing is helping get pt. to bed and states that pt. insisted. Appearance OT takes over for nursing. Mental Status/Objective Patient Orientation: Person, Place Functional [place] Measure 0=Not Assessed/NA 4=Minimal Assistance 1=Total Assistance 5=Supervision or Setup 2=Maximal Assistance 6=Modified [place] 3=Moderate Assistance 7=Complete [place] ADL-Treatment Functional [place] Measure 0=Not Assessed/NA 4=Minimal Assistance 1=Total Assistance 5=Supervision or Setup 2=Maximal Assistance 6=Modified [place] 3=Moderate Assistance 7=Complete IndependenceIRFPAI Quality Coding Scale 6 Independent with activity with or without an assistive device 5 Patient requires set up or clean up by helper. Patient completes activity by themselves 4 Supervision or touching assist (CGA). [place] provide cues , steadying assist 3 The helper provides less than half the effort to complete the activity 2 The helper provides more than half the effort to complete the activity 1 Dependent. The helper does all the effort to complete an activity 7 Patient refused to complete or attempt activity 9 The patient did not perform the activity before the current illness or injury 88 Not attempted due to Medical conditions or safety concerns Toileting (FIM): 3 (Pt. requires assist to doff/don boxer shorts and shorts. Pt. is able to cleanse self while on toilet.) Toileting Hygiene (QC): 3 Transfers (B, C, W/C) (FIM): 3 (Mod assist to stand pivot to toilet. Min assist to use slide board and transfer to bed.) Toilet/Commode Transfer (FIM): 3 Toilet Transfer (QC): 3 Other Treatment OT begins to set pt. up to get back to bed, as pt. is insistent. Pt. states that he may have to go to bathroom. OT encourages pt. to try before going to bed. Pt. agrees. OT assists pt. to toilet. Pt. has BM and transfers back to wheelchair. From wheelchair, pt. transfers back to bed. Pt. lets OT know how to position his leg correctly. OT talks with social service assistant regarding pt's desire to leave this facility. pack mule worker informed of pt's progress, and working on pt's equipment needs. Education OT Patient Education: Correct positioning, Modified ADL techniques, Progress toward Goal/Update tx plan, Purpose of tx/functional activities, Reviewed precautions, Rehab process, Transfer techniques Teaching Recipient: Patient Teaching Methods: Demonstration, Discussion Response to Teaching: Verbalize Understanding, Return Demonstration OT Short Term Goals Short Term Goals Time Frame: Sep 22, 2017 Eating(FIM): 7 Grooming(FIM): 7 Bathing(FIM): 6 Upper Body Dressing(FIM): 7 Lower Body Dressing(FIM): 5 Toileting(FIM): 5 Transfers (B,C,W/C) (FIM): 5 Toilet/Commode Transfer(FIM): 5 Shower Transfer(FIM): 5 1=Demonstrate adherence to instructed precautions during ADL tasks. 2=Patient will verbalize/demonstrate understanding of assistive devices/ modifications for ADL. 3=Patient will improve strength/tolerance for activity to enable patient to perform ADL's. OT Half-Way Goals Half-Way Goals Time Frame: Sep 30, 2017 Eating (FIM): 7 Eating (QC): 6 Groomin Oral Hygiene (QC): 6 Bathing(FIM): 7 Shower/Bathe Self (QC): 6 Upper Body Dressing(FIM): 7 Upper Body Dressing (QC): 6 Lower Body Dressing(FIM): 7 Lower Body Dressing (QC): 6 On/Off Footwear (QC): 4 Toileting(FIM): 7 Toileting Hygiene (QC): 6 Transfers (B,C,W/C) (FIM): 7 Toilet/Commode Transfer(FIM): 7 Toilet/Commode Transfer (QC): 7 Shower Transfer(FIM): 7 1=Demonstrate adherence to instructed precautions during ADL tasks. 2=Patient will verbalize/demonstrate understanding of assistive devices/ modifications for ADL. 3=Patient will improve strength/tolerance for activity to enable patient to perform ADL's. OT Education/Plan Problem List/Assessment Assessment: Decreased Activ Tolerance, Impaired I ADL's, Impaired Self-Care Skills Discharge Recommendations Plan/Recommendations: Continue POC Therapy D/C Recommendations: Home w/ Family Support Treatment Plan/Plan of Care Treatment,Training & Education: Yes Patient would benefit from OT for education, treatment and training to promote independence in ADL's, mobility, safety and/or upper extremity function for ADL' s. Plan of Care: ADL Retraining, Functional Mobility, Group Exercise/Act as Ind Treatment Duration: Sep 30, 2017 Frequency: At least 5 of 7 days/Wk (IRF) Estimated Hrs Per Day: 1.5 hours per day Agreement: Yes Rehab Potential: Good Time/GCodes Start Time: 13:00 Stop Time: 13:30 Total Time Billed (hr/min): 30 Billed Treatment Time 1, ADL x 15minutes, FA x 15minutes BILLY BLANTON OT Sep 19, 2017 14:21
--- NOTE | 2017-09-19 14:32 | Physical Therapy Daily Note ---
PT Daily Note-Current Subjective Pt is laying in bed pre tx and refuses to leave room or get out of bed for PT. Pt agrees to PT while laying in bed. Pain reported at 8/10. Pain Numeric Pain Scale: 8 Location: Left Location Body Site: Hip Appearance Pt is laying in bed post tx with nurse call, phone, and tray within reach. Mental Status Patient Orientation: Normal For Age Attachments: Knee Immobilizer (LLE) Below knee brace and PERLA wrap Transfers Functional [place] Measure 0=Not Assessed/NA 4=Minimal Assistance 1=Total Assistance 5=Supervision or Setup 2=Maximal Assistance 6=Modified [place] 3=Moderate Assistance 7=Complete IndependenceIRFPAI Quality Coding Scale 6 Independent with activity with or without an assistive device 5 Patient requires set up or clean up by helper. Patient completes activity by themselves 4 Supervision or touching assist (CGA). [place] provide cues , steadying assist 3 The helper provides less than half the effort to complete the activity 2 The helper provides more than half the effort to complete the activity 1 Dependent. The helper does all the effort to complete an activity 7 Patient refused to complete or attempt activity 9 The patient did not perform the activity before the current illness or injury 88 Not attempted due to Medical conditions or safety concerns No transfers performed due to not leaving bed or room. Weight Bearing Right Lower Extremity: Right Non Weight Bearing Left Lower Extremity: Left Weight Bearing/Tolerated NWB LUE Gait Training Does the Patient Walk?: No and Walking Goal NOT indicated Wheelchair Training Does the Pt Use a Wheelchair?: Yes Pt did not leave bed this session Exercises Supine Ex: Ankle pumps (20 x2 LLE), Glut sets (10 x2 ), Heel Slides (15 x2 RLE) , Straight leg raise (15 x2 LLE), Hip abd/add (15 x2 RLE) Toe flexion/extension: 15 x2 RLE Treatments Pt performed LE exercises Assessment Current Status: Fair Progress Pt refused to leave bed for PT. Pt tolerated LE exercises well with pain remaining stable at 8/10 with no visual signs of distress. PT Short Term Goals Short Term Goals Transfers (B,C,W/C) (FIM): 5 Wheelchair Distance: 75 feet x2 PT [employer] Goals [employer] Goals PT Prison Goals Time Frame: Sep 23, 2017 Transfers (B,C,W/C) (FIM): 6 Sit to Lying (QC): 6 Lying-Sitting on Side/Bed(QC): 6 Sit to Stand (QC): 5 Rollin Roll Left to Right (QC): 6 Chair/[id number]-[id number] Xfer(QC): 6 Car Transfer (QC): 6 Does the Patient Walk: No and Walking Goal NOT indicated Wheelchair (FIM): 6 Wheelchair distance (FIM): 3=150 ft Distance: 150 ft Wheelchair Level of Assist: 6 Wheel 50 feet with 2 turns (QC: 6 PT Plan Problem List Problem List: Activity Tolerance, Functional Strength, Safety, Balance, Gait, Transfer, Bed Mobility, ROM Treatment/Plan Treatment Plan: Continue Plan of Care Treatment Plan: Bed Mobility, Concurrent Therapy, Education, Functional Activity Val, Functional Strength, Group Therapy, Gait, Safety, Therapeutic Exercise, Transfers Treatment Duration: Sep 23, 2017 Frequency: At least 5 of 7 days/Wk (IRF) Estimated Hrs Per Day: 1.5 hours per day Patient and/or Family Agrees t: Yes Safety Risks/Education Patient Education: Correct Positioning, Disease Process Teaching Recipient: Patient Teaching Methods: Demonstration, Discussion Response to Teaching: Reinforcement Needed Time/GCodes Time In: 1330 Time Out: 1400 Total Billed Treatment Time: 30 Total Billed Treatment 1 visit 30 min EX BEKA LARSON PT Sep 19, 2017 14:32
[2017-09-19 17:00] VITALS: BP 122/68
[2017-09-19] MEDS: ENOXAPARIN 40 MG/0.4 ML (LOVENOX) SYR SC SCH (17:32)
[2017-09-20] MEDS: HYDROcodone/APAP 10 MG/325 MG (LORTAB) TAB PO PRN ×4 (03:45→17:08)
[2017-09-20 05:20] VITALS: BP 119/68
[2017-09-20] MEDS: POLYETHYLENE GLYCOL 17 GM (MIRALAX) PACK PO SCH (08:33)
[2017-09-20] MEDS ORDERED: FENTANYL PATCH REMOVAL TP SCH (08:59)
[2017-09-20] MEDS ORDERED: fentaNYL PATCH 75 MCG (DURAGESIC) TOP SCH (09:00)
--- NOTE | 2017-09-20 11:07 | Physical Therapy Daily Note ---
PT Daily Note-Current Subjective Pt is sitting in [facility] pre tx and c/o pain at 6/10 in the L shoulder. Pt agrees to PT. Pain Numeric Pain Scale: 6 Location: Left Location Body Site: Shoulder Appearance Pt is sitting in [facility] in room post tx and has nurse call, phone, and tray within reach. Mental Status Patient Orientation: Normal For Age Attachments: Knee Immobilizer (LLE) Below knee brace with PERLA wrap on RLE Transfers Functional [place] Measure 0=Not Assessed/NA 4=Minimal Assistance 1=Total Assistance 5=Supervision or Setup 2=Maximal Assistance 6=Modified [place] 3=Moderate Assistance 7=Complete IndependenceIRFPAI Quality Coding Scale 6 Independent with activity with or without an assistive device 5 Patient requires set up or clean up by helper. Patient completes activity by themselves 4 Supervision or touching assist (CGA). [place] provide cues , steadying assist 3 The helper provides less than half the effort to complete the activity 2 The helper provides more than half the effort to complete the activity 1 Dependent. The helper does all the effort to complete an activity 7 Patient refused to complete or attempt activity 9 The patient did not perform the activity before the current illness or injury 88 Not attempted due to Medical conditions or safety concerns Transfers (B, C, W/C) (FIM): 4 Scootin Rollin Supine to/from Sit: 5 Bed to/from Chair: 4 SBA for all bed mobility and CGA for bed to chair transfer with use of sliding board. Pt educated on avoiding WB on the LUE, but does not follow precaution. Weight Bearing Right Lower Extremity: Right Non Weight Bearing Left Lower Extremity: Left Weight Bearing/Tolerated NWB LUE Gait Training Does the Patient Walk?: No and Walking Goal NOT indicated Wheelchair Training Does the Pt Use a Wheelchair?: Yes Wheelchair (FIM): 5 Distance: 200 feet x1, 100 feet x1 Wheelchair Level of Assist: 5 Type of Wheelchair: Manual Verbal cues to limit pushing with LUE, but does not follow precautions. Exercises Supine Ex: Ankle pumps (20 x2 LLE), Quad Set (15 x2 ), Heel Slides (15 x2 RLE) , Knee to chest (15 x2 RLE), Straight leg raise (15 x2 RLE, 10 x2 LLE), Hip abd/ add (15 x2 RLE, 10 x2 LLE) Toe flexion/extension: 20 x2 RLE Treatments Pt performed [facility] mobility, functional activity, and LE exercises. Assessment Current Status: Fair Progress Pt demonstrates weakness in the LLE as seen with unequal repetitions in SLR and hip adduction/abduction. Pt in better spirits today possibly due to understanding that he is D/C on Monday, 09/22. PT Short Term Goals Short Term Goals Transfers (B,C,W/C) (FIM): 5 Wheelchair Distance: 75 feet x2 PT Card Runner Goals Card Runner Goals PT Card Runner Goals Time Frame: Sep 23, 2017 Transfers (B,C,W/C) (FIM): 6 Sit to Lying (QC): 6 Lying-Sitting on Side/Bed(QC): 6 Sit to Stand (QC): 5 Rollin Roll Left to Right (QC): 6 Chair/Twi-hi-Ypjbq Xfer(QC): 6 Car Transfer (QC): 6 Does the Patient Walk: No and Walking Goal NOT indicated Wheelchair (FIM): 6 Wheelchair distance (FIM): 3=150 ft Distance: 150 ft Wheelchair Level of Assist: 6 Wheel 50 feet with 2 turns (QC: 6 PT Plan Problem List Problem List: Activity Tolerance, Functional Strength, Safety, Balance, Gait, Transfer, Bed Mobility, ROM Treatment/Plan Treatment Plan: Continue Plan of Care Treatment Plan: Bed Mobility, Concurrent Therapy, Education, Functional Activity Val, Functional Strength, Group Therapy, Gait, Safety, Therapeutic Exercise, Transfers Treatment Duration: Sep 23, 2017 Frequency: At least 5 of 7 days/Wk (IRF) Estimated Hrs Per Day: 1.5 hours per day Patient and/or Family Agrees t: Yes Safety Risks/Education Patient Education: Transfer Techniques, Reviewed Precautions, Correct Positioning, W/C Management, Safety Issues Teaching Recipient: Patient Teaching Methods: Demonstration, Discussion Response to Teaching: Reinforcement Needed Time/GCodes Time In: 1000 Time Out: 1100 Total Billed Treatment Time: 60 Total Billed Treatment 1 visit 15 min [facility] 45 min EX BEKA LARSON PT Sep 20, 2017 11:07
--- NOTE | 2017-09-20 12:05 | Physical Therapy Daily Note ---
PT Daily Note-Current Subjective Pt is sitting in [facility] in visiting area pre tx and has no complaints of pain. Pt agrees to PT. Pain Numeric Pain Scale: 0-No Pain Location: No Pain Reported Appearance Pt is sitting in [facility] in room post tx with nurse call, phone, and tray within reach. Mental Status Patient Orientation: Normal For Age Attachments: Knee Immobilizer (LLE) Below knee cast and PERLA wrap on RLE Transfers Functional [place] Measure 0=Not Assessed/NA 4=Minimal Assistance 1=Total Assistance 5=Supervision or Setup 2=Maximal Assistance 6=Modified [place] 3=Moderate Assistance 7=Complete IndependenceIRFPAI Quality Coding Scale 6 Independent with activity with or without an assistive device 5 Patient requires set up or clean up by helper. Patient completes activity by themselves 4 Supervision or touching assist (CGA). [place] provide cues , steadying assist 3 The helper provides less than half the effort to complete the activity 2 The helper provides more than half the effort to complete the activity 1 Dependent. The helper does all the effort to complete an activity 7 Patient refused to complete or attempt activity 9 The patient did not perform the activity before the current illness or injury 88 Not attempted due to Medical conditions or safety concerns Transfers (B, C, W/C) (FIM): 5 Supine to/from Sit: 5 Bed to/from Chair: 5 SBA for supine to sit and bed to chair transfer needed Weight Bearing Right Lower Extremity: Right Non Weight Bearing Left Lower Extremity: Left Weight Bearing/Tolerated NWB LUE Gait Training Does the Patient Walk?: No and Walking Goal NOT indicated Wheelchair Training Does the Pt Use a Wheelchair?: Yes Wheelchair (FIM): 5 Distance: 200 feet x1, 100 feet x1 Wheelchair Level of Assist: 5 Type of Wheelchair: Manual Exercises Supine Ex: Ankle pumps (20 x1 LLE), Heel Slides (15 x1 RLE), Knee to chest (15 x1 RLE), Straight leg raise (15 x1 RLE, 10 x1 LLE), Hip abd/add (15 x1 RLE, 10 x1 LLE) Toe flexion/extension: 20 x1 RLE Treatments Pt performed [facility] mobility, bed mobility, and LE exercises. Assessment Current Status: Fair Progress Pt needs to use the sliding board during bed to chair transfer to the due to LUE NWB precautions. Pt reports weakness in the LLE after one set of SLR. PT Short Term Goals Short Term Goals Transfers (B,C,W/C) (FIM): 5 Wheelchair Distance: 200 feet x1, 100 feet x1 PT Senior Living Goals [employer] Goals PT [employer] Goals Time Frame: Sep 23, 2017 Transfers (B,C,W/C) (FIM): 6 Sit to Lying (QC): 6 Lying-Sitting on Side/Bed(QC): 6 Sit to Stand (QC): 5 Rollin Roll Left to Right (QC): 6 Chair/Pll-cz-Hjjvp Xfer(QC): 6 Car Transfer (QC): 6 Does the Patient Walk: No and Walking Goal NOT indicated Wheelchair (FIM): 6 Wheelchair distance (FIM): 3=150 ft Distance: 150 ft Wheelchair Level of Assist: 6 Wheel 50 feet with 2 turns (QC: 6 PT Plan Problem List Problem List: Activity Tolerance, Functional Strength, Safety, Balance, Gait, Transfer, Bed Mobility, ROM Treatment/Plan Treatment Plan: Continue Plan of Care Treatment Plan: Bed Mobility, Concurrent Therapy, Education, Functional Activity Val, Functional Strength, Group Therapy, Gait, Safety, Therapeutic Exercise, Transfers Treatment Duration: Sep 23, 2017 Frequency: At least 5 of 7 days/Wk (IRF) Estimated Hrs Per Day: 1.5 hours per day Patient and/or Family Agrees t: Yes Safety Risks/Education Patient Education: Transfer Techniques, Reviewed Precautions, Correct Positioning, W/C Management, Safety Issues Teaching Recipient: Patient Teaching Methods: Demonstration, Discussion Response to Teaching: Reinforcement Needed Time/GCodes Time In: 1130 Time Out: 1200 Total Billed Treatment Time: 30 Total Billed Treatment 1 visit 15 min WC 15 min BEKA PAZ PT Sep 20, 2017 12:05
--- NOTE | 2017-09-20 14:04 | Progress Note (SOAP) ---
Objective Exam Last Set of Vital Signs Vital Signs Date Time Temp Pulse Resp B/P (MAP) Pulse Ox O2 Delivery O2 Flow Rate FiO2 09/20/17 09:00 Room Air 09/20/17 05:20 97.8 63 18 119/68 (85) 98 Capillary Refill : Less Than 3 Seconds I&O Intake and Output 09/20/17 00:00 Intake Total 2022 ml Output Total 2000 ml Balance 22 ml Intake Oral 2022 ml Output Urine Total 2000 ml # Voids 3 # Bowel Movements 3 Assessment/Plan Assessment/Plan (1) Femur fracture, left Status: Acute (2) Thrombocytosis Status: Acute (3) Elevated glucose Status: Acute (4) Hyperbilirubinemia Status: Acute (5) Elevated alkaline phosphatase level Status: Acute (6) Multiple trauma Status: Acute (7) Acute pain due to trauma Status: Acute Clinical Quality Measures DVT/VTE Risk/Contraindication: Risk Factor Score Per Nursin RFS Level Per Nursing on Admit: 2=Moderate TAMMIE GANNON DO Sep 20, 2017 14:04
--- NOTE | 2017-09-20 15:18 | Occupational Ther Daily Note ---
OT Current Status-Daily Note Subjective Pt. reports pain in bilateral LE, but does not report pain level. States that he has already had pain medication. Appearance Pt. declines showering, but agrees to go to therapy with OT. Mental Status/Objective Functional [place] Measure 0=Not Assessed/NA 4=Minimal Assistance 1=Total Assistance 5=Supervision or Setup 2=Maximal Assistance 6=Modified [place] 3=Moderate Assistance 7=Complete [place] ADL-Treatment Functional [place] Measure 0=Not Assessed/NA 4=Minimal Assistance 1=Total Assistance 5=Supervision or Setup 2=Maximal Assistance 6=Modified [place] 3=Moderate Assistance 7=Complete IndependenceIRFPAI Quality Coding Scale 6 Independent with activity with or without an assistive device 5 Patient requires set up or clean up by helper. Patient completes activity by themselves 4 Supervision or touching assist (CGA). [place] provide cues , steadying assist 3 The helper provides less than half the effort to complete the activity 2 The helper provides more than half the effort to complete the activity 1 Dependent. The helper does all the effort to complete an activity 7 Patient refused to complete or attempt activity 9 The patient did not perform the activity before the current illness or injury 88 Not attempted due to Medical conditions or safety concerns Other Treatment Pt. requests to go to first floor with therapist. States that he would like to purchase something from the gift shop. Pt. is able to self propel wheelchair to gift shop, but due to size of gift shop, is unable to propel self in gift shop. OT assists pt. and pt picks out sign for girlfriend. Pt. is able to purchase this at counter on his own. Pt. is able to self propel wheelchair with min assist at times due to fatigue to chapel area. Once in chapel, pt. does begin to tell OT things about himself, such as what he does for a job. After this, pt. self propels down chambers, and back to elevator. pt. is unable to push button for elevator, and OT does this as well as assists him to elevator. Pt. stays up in chair once back on second floor. All needs met. Education OT Patient Education: Correct positioning, Exercise program, Modified ADL techniques, Progress toward Goal/Update tx plan, Purpose of tx/functional activities, Reviewed precautions, Transfer techniques Teaching Recipient: Patient Teaching Methods: Demonstration, Discussion Response to Teaching: Verbalize Understanding, Return Demonstration OT Short Term Goals Short Term Goals Time Frame: Sep 22, 2017 Eating(FIM): 7 Grooming(FIM): 7 Bathing(FIM): 6 Upper Body Dressing(FIM): 7 Lower Body Dressing(FIM): 5 Toileting(FIM): 5 Transfers (B,C,W/C) (FIM): 5 Toilet/Commode Transfer(FIM): 5 Shower Transfer(FIM): 5 1=Demonstrate adherence to instructed precautions during ADL tasks. 2=Patient will verbalize/demonstrate understanding of assistive devices/ modifications for ADL. 3=Patient will improve strength/tolerance for activity to enable patient to perform ADL's. OT Senior Living Goals Senior Living Goals Time Frame: Sep 30, 2017 Eating (FIM): 7 Eating (QC): 6 Groomin Oral Hygiene (QC): 6 Bathing(FIM): 7 Shower/Bathe Self (QC): 6 Upper Body Dressing(FIM): 7 Upper Body Dressing (QC): 6 Lower Body Dressing(FIM): 7 Lower Body Dressing (QC): 6 On/Off Footwear (QC): 4 Toileting(FIM): 7 Toileting Hygiene (QC): 6 Transfers (B,C,W/C) (FIM): 7 Toilet/Commode Transfer(FIM): 7 Toilet/Commode Transfer (QC): 7 Shower Transfer(FIM): 7 1=Demonstrate adherence to instructed precautions during ADL tasks. 2=Patient will verbalize/demonstrate understanding of assistive devices/ modifications for ADL. 3=Patient will improve strength/tolerance for activity to enable patient to perform ADL's. OT Education/Plan Problem List/Assessment Assessment: Decreased Activ Tolerance, Decreased UE Strength, Dependent Transfers, Impaired Bed Mobility, Impaired Funct Balance, Impaired I ADL's, Impaired Self-Care Skills Discharge Recommendations Plan/Recommendations: Continue POC Therapy D/C Recommendations: Home w/ Family Support Treatment Plan/Plan of Care Treatment,Training & Education: Yes Patient would benefit from OT for education, treatment and training to promote independence in ADL's, mobility, safety and/or upper extremity function for ADL' s. Plan of Care: ADL Retraining, Functional Mobility, Group Exercise/Act as Ind Treatment Duration: Sep 30, 2017 Frequency: At least 5 of 7 days/Wk (IRF) Estimated Hrs Per Day: 1.5 hours per day Agreement: Yes Rehab Potential: Good Time/GCodes Start Time: 09:00 Stop Time: 10:00 Total Time Billed (hr/min): 60 Billed Treatment Time 1, FA x 4 BILLY BLANTON OT Sep 20, 2017 15:18
--- NOTE | 2017-09-20 16:21 | Occupational Ther Daily Note ---
OT Current Status-Daily Note Subjective No pain reported. Appearance Pt. up in wheelchair. Requests to "get off this floor." Mental Status/Objective Patient Orientation: Person, Place Functional Echo Measure 0=Not Assessed/NA 4=Minimal Assistance 1=Total Assistance 5=Supervision or Setup 2=Maximal Assistance 6=Modified Echo 3=Moderate Assistance 7=Complete Echo ADL-Treatment Functional Echo Measure 0=Not Assessed/NA 4=Minimal Assistance 1=Total Assistance 5=Supervision or Setup 2=Maximal Assistance 6=Modified Echo 3=Moderate Assistance 7=Complete IndependenceIRFPAI Quality Coding Scale 6 Independent with activity with or without an assistive device 5 Patient requires set up or clean up by helper. Patient completes activity by themselves 4 Supervision or touching assist (CGA). [place] provide cues , steadying assist 3 The helper provides less than half the effort to complete the activity 2 The helper provides more than half the effort to complete the activity 1 Dependent. The helper does all the effort to complete an activity 7 Patient refused to complete or attempt activity 9 The patient did not perform the activity before the current illness or injury 88 Not attempted due to Medical conditions or safety concerns Other Treatment Pt. practiced self propulsion in wheelchair throughout first floor. Also worked on getting on and off elevator, manuevering wheelchair with extending leg rests in tight places, and increasing overall UE strength. Pt. requires multiple rest breaks throughout treatment. Pt. able to self propel back to second floor. All needs met. Education OT Patient Education: Correct positioning, Exercise program, Progress toward Goal/Update tx plan, Purpose of tx/functional activities, Reviewed precautions, Rehab process, Transfer techniques Teaching Recipient: Patient Teaching Methods: Demonstration, Discussion Response to Teaching: Verbalize Understanding, Return Demonstration OT Short Term Goals Short Term Goals Time Frame: Sep 22, 2017 Eating(FIM): 7 Grooming(FIM): 7 Bathing(FIM): 6 Upper Body Dressing(FIM): 7 Lower Body Dressing(FIM): 5 Toileting(FIM): 5 Transfers (B,C,W/C) (FIM): 5 Toilet/Commode Transfer(FIM): 5 Shower Transfer(FIM): 5 1=Demonstrate adherence to instructed precautions during ADL tasks. 2=Patient will verbalize/demonstrate understanding of assistive devices/ modifications for ADL. 3=Patient will improve strength/tolerance for activity to enable patient to perform ADL's. OT Timber Cutter Goals Long-Term Goals Time Frame: Sep 30, 2017 Eating (FIM): 7 Eating (QC): 6 Groomin Oral Hygiene (QC): 6 Bathing(FIM): 7 Shower/Bathe Self (QC): 6 Upper Body Dressing(FIM): 7 Upper Body Dressing (QC): 6 Lower Body Dressing(FIM): 7 Lower Body Dressing (QC): 6 On/Off Footwear (QC): 4 Toileting(FIM): 7 Toileting Hygiene (QC): 6 Transfers (B,C,W/C) (FIM): 7 Toilet/Commode Transfer(FIM): 7 Toilet/Commode Transfer (QC): 7 Shower Transfer(FIM): 7 1=Demonstrate adherence to instructed precautions during ADL tasks. 2=Patient will verbalize/demonstrate understanding of assistive devices/ modifications for ADL. 3=Patient will improve strength/tolerance for activity to enable patient to perform ADL's. OT Education/Plan Problem List/Assessment Assessment: Decreased Activ Tolerance, Dependent Transfers, Impaired I ADL's, Impaired Self-Care Skills Discharge Recommendations Plan/Recommendations: Continue POC Therapy D/C Recommendations: Home w/ Family Support Treatment Plan/Plan of Care Treatment,Training & Education: Yes Patient would benefit from OT for education, treatment and training to promote independence in ADL's, mobility, safety and/or upper extremity function for ADL' s. Plan of Care: ADL Retraining, Functional Mobility, Group Exercise/Act as Ind Treatment Duration: Sep 30, 2017 Frequency: At least 5 of 7 days/Wk (IRF) Estimated Hrs Per Day: 1.5 hours per day Agreement: Yes Rehab Potential: Good Time/GCodes Start Time: 14:20 Stop Time: 14:50 Total Time Billed (hr/min): 30 Billed Treatment Time 1, FA x 2 BILLY BLANTON OT Sep 20, 2017 16:21
[2017-09-20] MEDS: ENOXAPARIN 40 MG/0.4 ML (LOVENOX) SYR SC SCH (17:08)
[2017-09-20] MEDS ORDERED: DOCU100C37 PO (17:39)
[2017-09-20] MEDS ORDERED: POLY17PO23 PO (17:39)
[2017-09-20] MEDS ORDERED: HYDR-3820 PO (17:39)
[2017-09-20] MEDS ORDERED: FENT1PAT10 TOP (17:39)
[2017-09-20 18:25] VITALS: BP 119/68
--- NOTE | 2017-09-21 08:40 | Therapy Team Discharge Summary ---
Therapy Discharge Summary Discharge Recommendations Date of Discharge Sep 20, 2017 at 18:30 Therapy D/C Recommendations: Home w/ Family Support Occupational Therapy Pt. seen for Occupational therapy. Pt. goals to be independent/Mod I with all tasks. However, pt. declines practicing equipment to make him independent, as his mother will "do it for me." Pt. still required min/mod assist with ADL transfers at times. Pt. was supposed to stay for a few more days to gain strength, but became adamant to go home with mother support. Pt. discharged home. No further OT warranted as pt. has his mother for ADL acquisition per him. Pt. would benefit from having a wheelchair with elevating leg rest, and slide board if possible. Decreased Activ Tolerance, Dependent Transfers, Impaired I ADL's, Impaired Self- Care Skills PT [facility] Goals Archery Instructor Goals PT Archery Instructor Goals Time Frame: Sep 23, 2017 Transfers (B,C,W/C) (FIM): 6 Roll Left to Right (QC): 6 Sit to Lying (QC): 6 Lying-Sitting on Side/Bed(QC): 6 Sit to Stand (QC): 5 Chair/Sck-wt-Juhic Xfer(QC): 6 Car Transfer (QC): 6 Does the Patient Walk: No and Walking Goal NOT indicated Wheelchair (FIM): 6 Wheelchair distance (FIM): 3=150 ft Distance: 150 ft Wheelchair Level of Assist: 6 Wheel 50 feet with 2 turns (QC: 6 OT [facility] Goals [facility] Goals Time Frame: Sep 30, 2017 Eating (FIM): 7 (met) Eating (QC): 6 Oral Hygiene (QC): 6 (met) Grooming(FIM): 7 (not met) Bathing(FIM): 7 (not met) Shower/Bathe Self (QC): 6 (not met) Upper Body Dressing(FIM): 7 (not) Upper Body Dressing (QC): 6 (not met) Lower Body Dressing(FIM): 7 (not met) Lower Body Dressing (QC): 6 (not met) On/Off Footwear (QC): 4 (not met) Toileting(FIM): 7 (not met) Toileting Hygiene (QC): 6 (not met) Transfers (B,C,W/C) (FIM): 7 (met not) Toilet/Commode Transfer(FIM): 7 (not met) Toilet/Commode Transfer (QC): 7 (not met) Shower Transfer(FIM): 7 (not met) 1=Demonstrate adherence to instructed precautions during ADL tasks. 2=Patient will verbalize/demonstrate understanding of assistive devices/ modifications for ADL. 3=Patient will improve strength/tolerance for activity to enable patient to perform ADL's. BILLY BLANTON OT Sep 21, 2017 08:40
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
== END 2017-09-20 18:30 | disposition home or self-care (01) | DRG 561 ==
PROVIDERS: ADMIT Physical Medicine & Rehabilitation; ATTEND Physical Medicine & Rehabilitation
DX: S72.92XD Unspecified fracture of left femur, subsequent encounter for closed fracture with routine healing (principal); S92.001D Unspecified fracture of right calcaneus, subsequent encounter for fracture with routine healing; S92.321D Displaced fracture of second metatarsal bone, right foot, subsequent encounter for fracture with routine healing; S92.331D Displaced fracture of third metatarsal bone, right foot, subsequent encounter for fracture with routine healing; S92.341D Displaced fracture of fourth metatarsal bone, right foot, subsequent encounter for fracture with routine healing; S82.102D Unspecified fracture of upper end of left tibia, subsequent encounter for closed fracture with routine healing; S42.121D Displaced fracture of acromial process, right shoulder, subsequent encounter for fracture with routine healing; S36.116D Major laceration of liver, subsequent encounter; S37.031D Laceration of right kidney, unspecified degree, subsequent encounter; S32.402D Unspecified fracture of left acetabulum, subsequent encounter for fracture with routine healing; S35.0 Injury of abdominal aorta; S32.059D Unspecified fracture of fifth lumbar vertebra, subsequent encounter for fracture with routine healing; D64.9 Anemia, unspecified; D72.829 Elevated white blood cell count, unspecified; D47.3 Essential (hemorrhagic) thrombocythemia; F10.10 Alcohol abuse, uncomplicated; R73.9 Hyperglycemia, unspecified; R74.8 Abnormal levels of other serum enzymes; V99.XXXD Unspecified transport accident, subsequent encounter
CPT/HCPCS: 36415; 73030; 80053; 83036; 85007; 85025; 85027

== ENCOUNTER 2019-02-02 12:31 | Emergency (ER) | payer SELFPAY ==
[~2019-02-02] VITALS: Ht 172.7 cm; Wt 77.6 kg
[~2019-02-02 12:31] MED LIST changes: +DOCU100C37 PO; +FENT1PAT10 TOP; +FENT1PAT58 TD; +HYDR-3820 PO; +POLY17PO31 PO
--- OUTSIDE RECORDS SUMMARY | 2019-02-02 12:37 | XMS REPORT ---
Author Author Migration, Doctor Organization [facility] Address Unknown Phone Unavailable Care Team Providers Care Billposting Supervisor Name Role Phone Migration, Doctor Unavailable Unavailable PROBLEMS Type Condition ICD9-CM Code GGE05-FA Code Onset Dates Condition Status SNOMED Code Problem Diabetes mellitus without mention of complication, type II or unspecified type, not stated as uncontrolled 250.00 Active 457964410 Problem Dermatophytosis of groin and perianal area 110.3 Active 558619748 Problem Other convulsions 780.39 Active 56520345 Problem Anxiety state, unspecified 300.00 Active 984006289 ALLERGIES No Information ENCOUNTERS Encounter Location Date Diagnosis [facility] [id number] [place] [id number] November, Sore throat J02.9 and Non-intractable vomiting with nausea, unspecified vomiting type R11.[address] [facility] [address] [facility] [place] [address] Sep, Tonsillitis J03.[address] [facility] [id number] [place] [phone] Jun, Costochondritis, acute M94.0 [facility] [id number] [place] [id number] Oct, [facility] [id number] [place] [id number] Oct, [facility] [id number] [place] [phone] Jun, [facility] [id number] [place] [phone] Jun, [facility] [address] [place] [id number] Jun, [facility] [id number] [place] [id number] Jun, [facility] [address] [id number] [place] [address] Apr, [facility] [address] [id number] [place] [address] Apr, [facility] [address] [place] [id number] Apr, [facility] [address] [id number] [place] [address] Mar, [facility] [address] [place] [id number] Dec, [facility] [address] [id number] [place] [address] Dec, [facility] [address] [id number] [place] [address] Oct, [facility] [address] [id number] [place] [address] Jul, [facility] [address] [id number] [place] [address] Jul, [facility] [address] [id number] [place] [address] Jun, [facility] [address] [id number] [place] [address] Jun, [facility] [address] [id number] [place] [address] Jun, [facility] [address] [id number] [place] [address] Jun, [facility] [address] [id number] [place] [address] Mar, [facility] [address] [place] [id number] Mar, 2012 [facility] [address] [id number] Feb, [facility] [address] [id number] [place] [address] Jan, [facility] [address] [facility] [id number] [place] [address] Aug, [facility] [address] [facility] [id number] [place] [address] November, IMMUNIZATIONS No Known Immunizations SOCIAL HISTORY Never Assessed REASON FOR VISIT EMR-[facility] PLAN OF CARE VITAL SIGNS MEDICATIONS No Known Medications RESULTS No Results PROCEDURES No Known procedures INSTRUCTIONS MEDICATIONS ADMINISTERED No Known Medications MEDICAL (GENERAL) HISTORY Type Description Date Surgical History femur, hip, knee surgery 2018 Surgical History spleen removal 1997 Hospitalization History surgeries
--- OUTSIDE RECORDS SUMMARY | 2019-02-02 12:37 | XMS REPORT ---
Author Author Migration, Doctor Organization [facility] [place] [facility] Address Unknown Phone Unavailable Care Team Providers Care Branch Account Manager Name Role Phone Migration, Doctor Unavailable Unavailable PROBLEMS Type Condition ICD9-CM Code [id number] Code Onset Dates Condition Status SNOMED Code Problem Diabetes mellitus without mention of complication, type II or unspecified type, not stated as uncontrolled 250.00 Active 788956992 Problem Dermatophytosis of groin and perianal area 110.3 Active 103036283 Problem Other convulsions 780.39 Active 70637699 Problem Anxiety state, unspecified 300.00 Active 447122094 ALLERGIES Substance Reaction Event Type Date Status Depakote 500 Mg Tablet supposed nose bleeds Non Drug Allergy Oct, Active ENCOUNTERS Encounter Location Date Diagnosis [facility] IN [facility] [address] [place] [address] November, Sore throat J02.9 and Non-intractable vomiting with nausea, unspecified vomiting type R11.2 [facility] IN [facility] [address] [place] [address] Sep, Tonsillitis J03.90 and Sore throat J02.9 [facility] [place] [address] [address] Jun, Costochondritis, acute M94.0 [facility] [place] [address] [place] [address] Oct, [facility] [place] [id number] [place] [address] Oct, [facility] [place] [id number] [place] [address] Jun, [facility] [place] [address] [place] [address] Jun, [facility] [address] [place] [id number] Jun, [facility] [address] [id number] [place] [address] Jun, [facility] [address] [id number] [place] [address] Apr, [facility] [address] [id number] [place] [address] Apr, [facility] [address] [place] [id number] Apr, [facility] [address] [id number] [place] [address] Mar, [facility] [address] [place] [id number] Dec, [facility] [address] [id number] [place] [address] Dec, [facility] [address] [id number] [place] [address] Oct, [facility] [address] [id number] [place] [address] Jul, [facility] [address] [id number] [place] [address] Jul, [facility] [address] [id number] [place] [address] Jun, [facility] [address] [id number] [place] [address] Jun, [facility] [address] [id number] [place] [address] Jun, [facility] [address] [id number] [place] [address] Jun, [facility] [address] [id number] [place] [address] 25 Mar, 2012 [facility] [address] [place] [id number] 18 Mar, 2012 [facility] [address] [place] [id number] Feb, [facility] [place] [address] [facility] [id number] [address] Jan, [facility] [place] [address] [facility] [id number], [place] [address] Aug, [facility] [place] [address] [facility] [id number] [address] November, IMMUNIZATIONS No Known Immunizations SOCIAL HISTORY Never Assessed REASON FOR VISIT [facility] PLAN OF CARE VITAL SIGNS MEDICATIONS Medication Instructions Dosage Frequency Start Date End Date Duration Status Azithromycin 250 mg 2 Tablet by Oral route 1 time per day for 6 days Jun, Active Seroquel 300 mg 1 tablet by Oral route 1 time per day Apr, Active Mqzwyqvl-Dhpffvcsz-CF 3.5-10,000-1 mg-unit/mL-% 4 drop by Otic route 4 times per day for 7 day(s) Jun, Active metformin 500 mg take 1 tablet (500 mg) by oral route 2 times per day with morning and evening meals Jun, Active Miconazole Nitrate 2 % 1 renato by Topical route 2 times per day for 14 day(s) Feb, Active RESULTS No Results PROCEDURES No Known procedures INSTRUCTIONS MEDICATIONS ADMINISTERED No Known Medications MEDICAL (GENERAL) HISTORY Type Description Date Surgical History femur, hip, knee surgery 2017 Surgical History spleen removal 1997 Hospitalization History surgeries
--- OUTSIDE RECORDS SUMMARY | 2019-02-02 12:38 | XMS REPORT | Continuity of Care Document ---
Author Organization Unknown Address Unknown Allergies Active Description Code Type Severity Reaction [...] Procedures Code Description [place] [address] CMP 08/24/2012 53901 URINE DRUG SCREEN (IN-HOUSE) 08/24/2012 24108 TSH 08/24/2012 10123 CBC 08/24/2012 55020 EEG 08/24/2012 40326 A1C (IN-HOUSE) 05/07/2013 Results There is no data. Encounters ACCT No. Visit Date/Time Discharge Status Pt. Type Provider Facility Loc./Unit Complaint [id number] 12/17/2018 10:20:00 12/17/2018 23:59:59 [facility] Outpatient LENORA GARCIA LAC [facility] [id number] 07/09/2013 09:09:00 07/09/2013 23:59:59 [facility] Outpatient MARI TOSCANO MD [id number] 05/07/2013 09:55:00 05/07/2013 23:59:59 [facility] Outpatient MILEY REEVES APRN [id number] 08/24/2012 10:54:00 08/24/2012 23:59:59 [facility] Outpatient SAE GONZALES DO [id number] 04/17/2012 09:37:00 04/17/2012 23:59:59 [facility] Outpatient MILEY REEEVS APRN [id number] 03/18/2013 13:10:00 Document Registration [id number] 01/22/2013 09:49:00 Document Registration
--- OUTSIDE RECORDS SUMMARY | 2019-02-02 12:38 | XMS REPORT ---
Author Author BETH CASTLE [facility] Address [address] [place] [address] Care Team Providers Care Greens Picker Name Role Phone BETH CASTLE Unavailable PROBLEMS Type Condition ICD9-CM Code [id number] Code Onset Dates Condition Status SNOMED Code Problem Diabetes mellitus without mention of complication, type II or unspecified type, not stated as uncontrolled 250.00 Active 015046907 Problem Dermatophytosis of groin and perianal area 110.3 Active 192852923 Problem Other convulsions 780.39 Active 06921566 Problem Anxiety state, unspecified 300.00 Active 402935035 ALLERGIES Substance Reaction Event Type Date Status Keflex hives Drug Allergy Sep, Active Depakote 500 Mg Tablet supposed nose bleeds Non Drug Allergy Sep, Active ENCOUNTERS Encounter Location Date Diagnosis [facility] [address] [place] [address] Sep, Tonsillitis J03.90 and Sore throat J02.9 [facility] [id number] [address] Jun, Costochondritis, acute M94.0 [facility] [address] [address] Oct, [facility] [id number] [address] Oct, [facility] [address] [address] Jun, [facility] [address] [address] Jun, [facility] [address] [place] [id number] Jun, [facility] [place] [facility] [address] [id number] [place] [address] Jun, [facility] [address] [id number] [place] [address] Apr, [facility] [address] [id number] [place] [address] Apr, [facility] [address] [place] [id number] Apr, [facility] [address] [id number] [place] [address] Mar, [facility] [address] [place] [id number] Dec, [facility] [address] [id number] [place] [address] Dec, [facility] [address] [id number] [place] [address] Oct, [facility] [address] [id number] [place] [address] Jul, [facility] [address] [id number] [place] [address] Jul, [facility] [address] [id number] [place] [address] Jun, [facility] [address] [id number] [place] [address] Jun, [facility] [address] [id number] [place] [address] Jun, [facility] [address] [id number] [place] [address] Jun, [facility] [address] [id number] [place] [address] Mar, [facility] [address] [place] [id number] 18 Mar, 2012 [facility] [address] [place] [id number] Feb, [facility] [address] [id number] [place] [address] Jan, [facility] [address] [facility] [id number], [place] [address] Aug, [facility] [address] [facility] [id number], [place] [address] November, IMMUNIZATIONS No Known Immunizations SOCIAL HISTORY Never Assessed REASON FOR VISIT Sore throat x 3 days. Ibuprofen 3-4 hours ago.-[facility] PLAN OF CARE Activity Details Follow Up if not improving or with pcp for regular fu Reason: VITAL SIGNS Height 68 in 2018-10-03 Weight 169 lbs 2018-10-03 Temperature 98.3 degrees Fahrenheit 2018-10-03 Heart Rate 82 bpm 2018-10-03 Respiratory Rate 18 2018-10-03 BMI 25.69 kg/m2 2018-10-03 Blood pressure systolic 130 mmHg 2018-10-03 Blood pressure diastolic 80 mmHg 2018-10-03 MEDICATIONS Medication Instructions Dosage Frequency Start Date End Date Duration Status Augmentin 875-125 MG Orally every 12 hrs 1 tablet 12h Sep, 10 day(s) Active Ibuprofen Active RESULTS Name Result Date Reference Range STREP A (IN HOUSE) 2018-10-03 STREP A neg Control pass Lot # [id number] Exp date 08/30/2019 PROCEDURES Procedure Date Ordered Result Body Site STREP A ASSAY W/OPTIC October 03, 2018 INSTRUCTIONS MEDICATIONS ADMINISTERED No Known Medications MEDICAL (GENERAL) HISTORY Type Description Date Surgical History femur, hip, knee surgery 2018 Surgical History spleen removal 1998 Hospitalization History surgeries
--- OUTSIDE RECORDS SUMMARY | 2019-02-02 12:38 | XMS REPORT ---
Author Author MADELYNMIRIAM [facility] Address [address] [place] [address] Care Team Providers Care Barrel Rifler Hook Name Role Phone MIRIAM JOSHI Unavailable PROBLEMS Type Condition ICD9-CM Code ZUZ23-OF Code Onset Dates Condition Status SNOMED Code Problem Dermatophytosis of groin and perianal area 110.3 Active 074187537 Problem Diabetes mellitus without mention of complication, type II or unspecified type, not stated as uncontrolled 250.00 Active 147109887 Problem Anxiety state, unspecified 300.00 Active 112363663 Problem Other convulsions 780.39 Active 62090726 ALLERGIES Substance Reaction Event Type Date Status Keflex hives Drug Allergy Jun, Active Depakote 500 Mg Tablet supposed nose bleeds Non Drug Allergy Jun, Active ENCOUNTERS Encounter Location Date Diagnosis [facility] [id number] [place] [address] Jun, Costochondritis, acute M94.0 [facility] [id number] [place] [address] Oct, [facility] [id number] [place] [address] Oct, [facility] [id number] [place] [address] Jun, [facility] [id number] [place] [address] Jun, [facility] [address] [place] [id number] Jun, [facility] [id number] [place] [address] Jun, [facility] [id number] [place] [address] Apr, [facility] [address] [id number] [place] [address] Apr, [facility] [address] [id number] Apr, [facility] [address] [id number] [place] [address] Mar, [facility] [address] [id number] Dec, [facility] [address] [id number] [place] [address] Dec, [facility] [address] [id number] [place] [address] Oct, [facility] [address] [id number] [place] [address] Jul, [facility] [address] [id number] [place] [address] Jul, [facility] [address] [id number] [place] [address] Jun, [facility] [address] [id number] [place] [address] Jun, [facility] [address] [id number] [place] [address] Jun, [facility] [address] [id number] [place] [address] Jun, [facility] [address] [id number] [place] [address] Mar, [facility] [address] [id number] Mar, [facility] [address] [id number] Feb, [facility] [address] [id number] [place] [address] Jan, [facility] [address] [id number] [place] [address] Aug, [facility] [address] [facility] [id number] [place] [address] November, IMMUNIZATIONS No Known Immunizations SOCIAL HISTORY Never Assessed REASON FOR VISIT Abdominal pain--CarleyleachMA, Left side, under armpit but not quite chest area PLAN OF CARE Activity Details Follow Up prn Reason:will need to est care VITAL SIGNS Height 68 in 2017-07-27 Weight 166.2 lbs 2017-07-27 Temperature 97.6 degrees Fahrenheit 2017-07-27 Heart Rate 90 bpm 2017-07-27 Respiratory Rate 16 2017-07-27 BMI 25.27 kg/m2 2017-07-27 Blood pressure systolic 120 mmHg 2017-07-27 Blood pressure diastolic 62 mmHg 2017-07-27 MEDICATIONS Medication Instructions Dosage Frequency Start Date End Date Duration Status Indomethacin ER 75 MG Orally Once a day 1 capsule with food or milk 24h Jun, Jul, 14 days Active PredniSONE 10 mg Orally Once a day 4 tabs x 4 days, 3 tabs x 4 days, 2 tabs x 4 days then 1 tab x 4 days 24h Jun, Jul, 16 days Active RESULTS No Results PROCEDURES No Known procedures INSTRUCTIONS MEDICATIONS ADMINISTERED No Known Medications
[2019-02-02] MEDS ORDERED: NITROGLYCERIN 0.4 MG SL TABS BTL 25'S SL PRN (12:45)
[2019-02-02] MEDS ORDERED: ASPIRIN 81 MG CHEW (CHILDREN'S ASA) PO ONE (12:45)
[2019-02-02 13:01] LABS: HEMATOCRIT 43 % (40-54); HEMOGLOBIN 14.8 G/DL (13.3-17.7); MEAN CORPUSCULAR HEMOGLOBIN 31 PG (25-34); MEAN CORPUSCULAR HGB CONC 34 G/DL (32-36); MEAN CORPUSCULAR VOLUME 89 FL (80-99); WHITE BLOOD COUNT 10.9 10^3/uL (4.3-11.0)
[2019-02-02 13:02] LABS: BASOPHILS # (AUTO) 0.1 10^3/uL (0.0-0.1); BASOPHILS % (AUTO) 1 % (0-10); EOSINOPHILS # (AUTO) 0.3 10^3/uL (0.0-0.3); EOSINOPHILS % (AUTO) 3 % (0-10); LYMPHOCYTES # (AUTO) 4.3 X 10^3 (1.0-4.0); LYMPHOCYTES % (AUTO) 40 % (12-44); MEAN PLATELET VOLUME 12.6 FL (7.4-10.4); MONOCYTES # (AUTO) 1.2 X 10^3 (0.0-1.0); MONOCYTES % (AUTO) 11 % (0-12); NEUTROPHILS # (AUTO) 4.8 X 10^3 (1.8-7.8); NEUTROPHILS % (AUTO) 45 % (42-75); PLATELET COUNT 262 10^3/uL (130-400); RED CELL DISTRIBUTION WIDTH 13.2 % (10.0-14.5)
--- NOTE | 2019-02-02 13:11 | Diagnostic Imaging Report ---
Indication: Pain. Comparison made with prior examination of 09/03/2017. Findings: The heart size is normal. There are patchy bilateral perihilar infiltrates. No pleural effusion or pneumothorax. Mediastinum is unremarkable. Impression: Patchy bilateral perihilar infiltrate suspect for early pneumonia. Recommend clinical correlation. Dictated by: Dictated on workstation # [id number]
[2019-02-02 13:31] LABS: ALKALINE PHOSPHATASE 109 U/L (40-136); BILIRUBIN,TOTAL 2.1 MG/DL (0.1-1.0); BUN/CREATININE RATIO 14; CALCIUM 9.1 MG/DL (8.5-10.1); CARBON DIOXIDE 24 MMOL/L (21-32); CHLORIDE 100 MMOL/L (98-107); CREATININE SERUM 0.92 MG/DL (0.60-1.30); GFR ESTIMATED > 60; GLUCOSE 151 MG/DL (70-105); SODIUM 139 MMOL/L (135-145)
[2019-02-02 13:32] LABS: ALANINE AMINOTRANSFERASE 80 U/L (0-55); ALBUMIN 4.4 GM/DL (3.2-4.5); TOTAL PROTEIN 7.6 GM/DL (6.4-8.2)
[2019-02-02] MEDS ORDERED: LIDOCAINE 2% VISCOUS 15 ML UDC PO ONE (14:00)
[2019-02-02] MEDS ORDERED: ANTACID SUSP 30 ML UDC (MYLANTA) PO ONE (14:00)
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
[2019-02-02] MEDS ORDERED: PANT40TA2 PO (16:56)
[2019-02-02] MEDS ORDERED: SUCR1TAB36 PO (16:56)
[2019-02-02 17:16] VITALS: BP 127/72
== END 2019-02-02 17:16 | disposition home or self-care (01) ==
LOC: EDUNIT# 12:31 → ER FS 12:33
DX: K21.9 Gastro-esophageal reflux disease without esophagitis (principal); Z87.81 Personal history of (healed) traumatic fracture; Z88.1 Allergy status to other antibiotic agents; Z87.891 Personal history of nicotine dependence; Z98.890 Other specified postprocedural states
CPT/HCPCS: 36415; 71045; 80053; 83605; 83735; 83874; 84484; 85025; 85379; 85610; 85730; 87040; 93005; 93041

== ENCOUNTER 2020-01-11 20:52 | Emergency (ER) | payer SELFPAY ==
[~2020-01-11] VITALS: Ht 172.7 cm; Wt 78.9 kg
[~2020-01-11 20:52] MED LIST changes: +ACHYD1T PO; -HYDR-3820 PO; +PANT40TA2 PO; +SUCR1TAB36 PO
--- OUTSIDE RECORDS SUMMARY | 2020-01-11 20:58 | XMS REPORT ---
Author Author Shakir REEVES Organization [facility] Address [address] [place] [address] Care Team Providers Care Fan Blade Truer Name Role Phone LEANDRO MILEY Unavailable PROBLEMS Type Condition ICD9-CM Code TFO25-MU Code Onset Dates Condition S tatus SNOMED Code Problem Type 2 diabetes mellitus wit hout complication, without long-term current use of insulin E11.9 Active 014188997 Problem Type 2 diabetes mellitus wit hout complication, without long-term current use of insulin E11.9 Active [id number] ALLERGIES No Information ENCOUNTERS Encounter Location Date Diagnosis [facility] [address] [id number] [address] [place] [address] Jul, Influenza B J10.1 [facility] [address] [id number] [address] [place] [address] Jun, Acute bilateral otitis media H66.93 ; Acute gastroenteritis K52.9 and Type 2 diabetes mellitus without complication, without long-term current use of insulin E11.9 [facility] [address] [id number] [address] [place] [address] Jan, Pain of right heel M79.671 [facility] [address] [id number] [address] [place] [address] November, Sore throat J02.9 and Non-in tractable vomiting with nausea, unspecified vomiting type R11.2 [facility] [address] [id number] [address] Sep, Tonsillitis J03.90 and Sore throat J02.9 [facility] [address] [facility] [id number] [address] [place] [address] Jun, Costochondritis, acute M94.0 [facility] [address] [id number] [address] [place] [address], [place] [address] 14 Oct, 2014 [facility] [address] [id number] [address] [place] [address], [place] [address] Oct, [facility] [address] [id number] [address] [place] [address], [place] [address] 17 Jun, 2013 [facility] [address] [id number] [address] [place] [address], [place] [address] Jun, [facility] [address] [place] [id number] 57 Jun, [facility] [address] [id number] [address] [place] [address], [place] [address] Jun, [facility] [address] [id number] [address] [place] [address] Apr, [facility] [address] [id number] [address] [place] [phone] Apr, [facility] [address] [place], [place] [id number] 57 Apr, [facility] [address] [id number] [address] [place] [phone] Mar, [facility] [address] [place], [place] [id number] 57 Dec, [facility] [address] [id number] [address] [place] [address] Dec, [facility] [address] [id number] [address] [place] [phone] Oct, [facility] [address] [id number] [address] [place] [phone] Jul, [facility] [address] [id number] [address] [place] [phone] Jul, [facility] [address] [id number] [address] [place] [address], [place] [address] Jun, [facility] [address] [id number] [address] [place] [address], [place] [address] Jun, [facility] [address] [facility] [id number] [address] [place] [phone] Jun, [facility] [address] [facility] [id number] [address] [place] [phone] Jun, [facility] [address] [facility] [id number] [address] [place] [phone] Mar, [facility] [address] [place], [place] [id number] 57 Mar, [facility] [address] [place], [place] [id number] 57 Feb, [facility] [address] [facility] [id number] [address] [place] [phone] Jan, [facility] [address] [facility] [id number] [address] [place] [phone] Aug, [facility] [address] [facility] [id number] [address] [place] [address] November, IMMUNIZATIONS No Known Immunizations SOCIAL HISTORY Never Assessed REASON FOR VISIT PLAN OF CARE VITAL SIGNS Height 68 in 2013-05-07 Weight 181 lbs 2013-05-07 Temperature 97.3 degrees Fahrenheit 2013-05-07 Heart Rate 72 bpm 2013-05-07 Respiratory Rate 16 2013-05-07 Blood pressure systolic 110 mmHg 2013-05-07 Blood pressure diastolic 70 mmHg 2013-05-07 MEDICATIONS No Known Medications RESULTS No Results PROCEDURES Procedure Date Ordered Result Body Site GLYCATED HEMOGLOBIN TEST May 07, 2013 INSTRUCTIONS MEDICATIONS ADMINISTERED No Known Medications MEDICAL (GENERAL) HISTORY Type Description Date Medical History ADHD Medical History Other convulsions Medical History Anxiety state, unspecified Surgical History femur, hip, knee surgery 2018 Surgical History spleen removal 1998 Hospitalization History surgeries
--- OUTSIDE RECORDS SUMMARY | 2020-01-11 20:58 | XMS REPORT ---
Author Author Shakir REEVES Organization [facility] Address [address] [place] [address] Care Team Providers Care Auto Painter Helper Name Role Phone MILEY REEVES Unavailable PROBLEMS Type Condition ICD9-CM Code ASU66-XH Code Onset Dates Condition S tatus SNOMED Code Problem Type 2 diabetes mellitus wit hout complication, without long-term current use of insulin E11.9 Active 036357983 Problem Type 2 diabetes mellitus wit hout complication, without long-term current use of insulin E11.9 Active 279329663 ALLERGIES No Information ENCOUNTERS Encounter Location Date Diagnosis [facility] [address] [place] [address] Jul, Influenza B J10.1 [facility] [address] [id number] [place] [address] Jun, Acute bilateral otitis media H66.93 ; Ac nooksack gastroenteritis K52.9 and Type 2 diabetes mellitus without complication, without long-term current use of insulin E11.9 [facility] [address] [id number] [place] [address] Jan, Pain of right heel M79.671 [facility] [address] [place] [address] November, Sore throat J02.9 and Non-in tractable vomiting with nausea, unspecified vomiting type R11.2 [facility] [address] [place] [address] Sep, Tonsillitis J03.90 and Sore throat J02.9 [facility] [address] [id number] [place] [address] Jun, Costochondritis, acute M94.0 [facility] [address] [id number] [place] [address] 14 Oct, 2014 [facility] [address] [id number] [place] [address] 13 Oct, 2014 [facility] [address] [id number] [place] [address] 17 Jun, 2013 [facility] [address] [id number] [place] [address] Jun, [facility] [address] [place], [place] [id number] 57 Jun, [facility] [address] [id number] [place] [address] Jun, [facility] [address] [id number] [place] [address] Apr, [facility] [address] [id number] [place] [address] Apr, [facility] [address] [place] [id number] 57 08 Apr, 2013 [facility] [address] [id number] [place] [address] Mar, [facility] [address] [place], [place] [id number] 57 25 Dec, 2012 [facility] [address] [id number] [place] [address] Dec, [facility] [address] [id number] [place] [address] Oct, [facility] [address] [id number] [place] [address] Jul, [facility] [address] [id number] [place] [address] Jul, [facility] [address] [id number] [place] [address] Jun, [facility] [address] [id number] [place] [address] Jun, [facility] [address] [id number] [place] [address] Jun, [facility] [address] [id number] [place] [address] Jun, [facility] [address] [id number] [place] [address] Mar, [facility] [address] [place], [place] [id number] 57 Mar, [facility] [address] [place], [place] [id number] 57 Feb, [facility] [address] [id number] [place] [address] Jan, [facility] [address] [id number] [place] [address] Aug, [facility] [address] [id number] [place] [address] November, IMMUNIZATIONS No Known Immunizations SOCIAL HISTORY Never Assessed REASON FOR VISIT PLAN OF CARE VITAL SIGNS MEDICATIONS No Known Medications RESULTS No Results PROCEDURES No Known procedures INSTRUCTIONS MEDICATIONS ADMINISTERED No Known Medications MEDICAL (GENERAL) HISTORY Type Description Date Medical History ADHD Medical History Other convulsions Medical History Anxiety state, unspecified Surgical History femur, hip, knee surgery 2018 Surgical History spleen removal 1998 Hospitalization History surgeries
--- OUTSIDE RECORDS SUMMARY | 2020-01-11 20:58 | XMS REPORT ---
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 Culturist Name Role Phone Migration, Doctor Unavailable Unavailable PROBLEMS Type Condition ICD9-CM Code [id number] Code Onset Dates Condition S tatus SNOMED Code Problem Type 2 diabetes mellitus wit hout complication, without long-term current use of insulin E11.9 Active 723335498 Problem Type 2 diabetes mellitus wit hout complication, without long-term current use of insulin E11.9 Active 057305480 ALLERGIES No Information ENCOUNTERS Encounter Location Date Diagnosis [facility] [address] [address] [place] [address] Jul, Influenza B J10.1 [facility] [address] [id number] [address] [place] [address] Jun, Acute bilateral otitis media H66.93 ; Acute gastroenteritis K52.9 and Type 2 diabetes mellitus without complication, without long-term current use of insulin E11.9 [facility] [place] [address] [id number] [address] [place] [address] Jan, Pain of right heel M79.671 [facility] [address] [id number] [place] [address] November, Sore throat J02.9 and Non-in tractable vomiting with nausea, unspecified vomiting type R11.2 [facility] [address] [id number] [address] Sep, Tonsillitis J03.90 and Sore throat J02.9 [facility] [place] [address] [id number] [address] [place] [address] Jun, Costochondritis, acute M94.0 [facility] [place] [address] [id number] [address] [place] [address] Oct, [facility] [address] [id number] [address] [place] [address], [place] [address] Oct, [facility] [address] [id number] [address] [place] [address], [place] [address] Jun, [facility] [address] [id number] [address] [place] [address], [place] [address] Jun, [facility] [address] [place], [place] [id number] 57 Jun, [facility] [address] [id number] [address] [place] [address], [place] [address] Jun, [facility] [address] [id number] [address] [place] [address], [place] [address] Apr, [facility] [address] [id number] [address] [place] [address], [place] [address] Apr, [facility] [address] [place], [place] [id number] 57 08 Apr, 2013 [facility] [address] [id number] [address] [place] [address], [place] [address] Mar, [facility] [address] [place], [place] [id number] 57 Dec, [facility] [address] [id number] [address] [place] [address] Dec, [facility] [address] [id number] [address] [place] [address] Oct, [facility] [address] [id number] [address] [place] [address] Jul, [facility] [address] [id number] [address] [place] [address], [place] [address] Jul, [facility] [address] [id number] [address] [place] [address], [place] [address] Jun, [facility] [address] [id number] [address] [place] [address], [place] [address] Jun, [facility] [address] [id number] [address] [place] [address] Jun, [facility] [place] [address] [facility] [id number] [address] [place] [address] Jun, [facility] [place] [address] [facility] [id number] [address] [place] [phone] Mar, [facility] [address], [place] [id number] Mar, [facility] [address], [place] [id number] Feb, [facility], [place] [address] [facility] [id number] [address] [place] [id number] Jan, [facility], [place] [address] [facility] [id number] [address] [place] [id number] Aug, [facility], [place] [address] [facility] [id number] [address] [place] [id number] November, IMMUNIZATIONS No Known Immunizations SOCIAL HISTORY [...]
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
[2020-01-11] MEDS ORDERED: RT-ALBUTEROL INHALER HFA (VENTOLIN HFA) 8 GM IH PRN (21:00)
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
[2020-01-11] MEDS ORDERED: AMOX500C2 PO (21:08)
[2020-01-11] MEDS ORDERED: AMOXICILLIN 500 MG (POLYMOX) CAP PO STA (21:09)
[2020-01-11] MEDS ORDERED: BENZ100C18 PO (21:09)
[2020-01-11] MEDS ORDERED: AZITHROMYCIN 250 MG TAB (ZITHROMAX) PO ONE (21:12)
[2020-01-11] MEDS ORDERED: RX-ALBUTEROL INHALER (PROAIR) 8.5 GM IH STA (21:12)
[2020-01-11] MEDS ORDERED: RX-ALBUTEROL INHALER (PROAIR) 8.5 GM IH ONE (21:12)
[2020-01-11] MEDS ORDERED: HYDROcodone/APAP 5 MG/325 MG (LORTAB) TAB PO ONE (21:15)
[2020-01-11] MEDS ORDERED: AZITHROMYCIN 250 MG TAB (ZITHROMAX) PO SCH (21:15)
[2020-01-11 21:16] LABS: BASOPHILS # (AUTO) 0.2 10^3/uL (0.0-0.1); BASOPHILS % (AUTO) 1 % (0-10); EOSINOPHILS # (AUTO) 0.5 10^3/uL (0.0-0.3); EOSINOPHILS % (AUTO) 4 % (0-10); HEMATOCRIT 45 % (40-54); HEMOGLOBIN 15.3 G/DL (13.3-17.7); LYMPHOCYTES # (AUTO) 7.5 X 10^3 (1.0-4.0); LYMPHOCYTES % (AUTO) 57 % (12-44); MEAN CORPUSCULAR HEMOGLOBIN 30 PG (25-34); MEAN CORPUSCULAR HGB CONC 34 G/DL (32-36); MEAN CORPUSCULAR VOLUME 87 FL (80-99); MEAN PLATELET VOLUME 12.6 FL (7.4-10.4); MONOCYTES # (AUTO) 1.7 X 10^3 (0.0-1.0); MONOCYTES % (AUTO) 13 % (0-12); NEUTROPHILS # (AUTO) 3.3 X 10^3 (1.8-7.8); NEUTROPHILS % (AUTO) 25 % (42-75); PLATELET COUNT 285 10^3/uL (130-400); RED CELL DISTRIBUTION WIDTH 13.9 % (10.0-14.5); WHITE BLOOD COUNT 13.2 10^3/uL (4.3-11.0)
[2020-01-11 21:27] LABS: CHLORIDE 104 MMOL/L (98-107); POTASSIUM 3.4 MMOL/L (3.6-5.0); SODIUM 137 MMOL/L (135-145)
[2020-01-11 21:28] LABS: CALCIUM 9.5 MG/DL (8.5-10.1)
[2020-01-11 21:29] LABS: GLUCOSE 140 MG/DL (70-105)
[2020-01-11 21:30] LABS: CARBON DIOXIDE 21 MMOL/L (21-32)
[2020-01-11 21:33] LABS: BUN/CREATININE RATIO 13; CREATININE SERUM 0.94 MG/DL (0.60-1.30); GFR ESTIMATED > 60
--- NOTE | 2020-01-11 21:35 | Diagnostic Imaging Report ---
INDICATION: Cough. Shortness of air. COMPARISON: 02/02/2019. EXAMINATION: Single frontal view of the chest was obtained. FINDINGS: Normal heart size and pulmonary vascularity. The lungs are well aerated and clear. No large pleural effusion or pneumothorax is seen. The visualized osseous structures show no acute abnormality. IMPRESSION: No acute cardiopulmonary process. Dictated by: Dictated on workstation # [id number]
[2020-01-11 21:47] VITALS: BP 151/84
== END 2020-01-11 21:48 | disposition home or self-care (01) ==
LOC: EDUNIT# 20:52 → ER 20:54
DX: R05 Cough (principal); Z20.828 Contact with and (suspected) exposure to other viral communicable diseases; Z88.1 Allergy status to other antibiotic agents
CPT/HCPCS: 71045; 80048; 85025; 86141; 99283; U0002; 36415; 87635

== ENCOUNTER 2022-05-30 13:35 | Emergency (ER) | payer BC ==
[~2022-05-30] VITALS: Ht 175.3 cm; Wt 75.3 kg
[~2022-05-30 13:35] MED LIST changes: +AMOX500C2 PO; +BENZ100C18 PO; -POLY17PO31 PO; +POLY17PO54 PO
[2022-05-30] MEDS ORDERED: ORPHENADRINE 60 MG/2 ML (NORFLEX) AMP (ED ONLY) IM STA (13:58)
[2022-05-30] MEDS ORDERED: morphine INJ 10 MG/ML 1ML (SYR OR VIAL) IM STA (13:58)
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
[2022-05-30] MEDS ORDERED: CYCL10TA25 PO (14:08)
[2022-05-30] MEDS ORDERED: HYDR-3817 PO (14:08)
[2022-05-30] MEDS ORDERED: PRD20T PO (14:08)
[2022-05-30 14:11] VITALS: BP 133/81
== END 2022-05-30 14:11 | disposition home or self-care (01) ==
LOC: EDUNIT# 13:35 → ER FS 13:38
DX: M54.41 Lumbago with sciatica, right side (principal); G89.29 Other chronic pain; F17.200 Nicotine dependence, unspecified, uncomplicated; Z28.310 Unvaccinated for COVID-19
CPT/HCPCS: 99284

== ENCOUNTER 2022-12-12 17:19 | Emergency (ER) | payer BC ==
[~2022-12-12] VITALS: Ht 170.2 cm; Wt 74.5 kg
[~2022-12-12 17:19] MED LIST changes: +CYCL10TA25 PO; +HYDR-3817 PO; +PRD20T PO
[2022-12-12 17:22] VITALS: BP 119/78
[2022-12-12] MEDS ORDERED: HYDROcodone/APAP 7.5 MG/325 MG (LORTAB, LORCET PLUS) TABLET PO STA (17:46)
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
[2022-12-12] MEDS ORDERED: METH-732 PO ×2 (17:54→18:29)
[2022-12-12] MEDS ORDERED: PRED10TA22 PO (17:54)
[2022-12-12] MEDS ORDERED: ACHD5005 PO ×2 (17:54→18:29)
[2022-12-12] MEDS ORDERED: KETOROLAC 30 MG/ML VIAL IM ONE (18:00)
[2022-12-12] MEDS ORDERED: methylPREDNISolone 40 MG/ML (Solu-MEDROL) VIAL IM ONE (18:00)
[2022-12-12] MEDS ORDERED: PRD20T PO (18:29)
== END 2022-12-12 17:58 | disposition home or self-care (01) ==
LOC: EDUNIT# 17:19 → ER 17:21
DX: M54.50 Low back pain, unspecified (principal); M25.562 Pain in left knee; M25.561 Pain in right knee; Z87.39 Personal history of other diseases of the musculoskeletal system and connective tissue; Z28.310 Unvaccinated for COVID-19; W01.0XXA Fall on same level from slipping, tripping and stumbling without subsequent striking against object, initial encounter
CPT/HCPCS: 99283

== ENCOUNTER 2023-06-12 17:32 | Emergency (ER) | payer BC ==
[~2023-06-12] VITALS: Ht 170 cm; Wt 79.0 kg
[~2023-06-12 17:32] MED LIST changes: +ACHD5005 PO; +METH-732 PO; +PRED10TA22 PO
[2023-06-12 17:39] VITALS: BP 130/76
[2023-06-12] MEDS ORDERED: KETOROLAC INJ 15 MG/ML VIAL IM ONE (18:15)
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
[2023-06-12] MEDS ORDERED: METH4TAB10 PO (18:25)
[2023-06-12] MEDS ORDERED: ORPHENADRINE 60 MG/2 ML AMP (ED ONLY) IM ONE (18:30)
[2023-06-12] MEDS ORDERED: dexAMETHasone INJ 10 MG/ML 1 ML VIAL IM ONE (18:30)
== END 2023-06-12 18:29 | disposition home or self-care (01) ==
LOC: EDUNIT# 17:32 → ER 17:35
DX: M54.10 Radiculopathy, site unspecified (principal); Z79.891 Long term (current) use of opiate analgesic
CPT/HCPCS: 99281

== ENCOUNTER → 2023-06-20 | Outpatient (CLI) | payer BC ==
[~2023-06-20] MED LIST changes: +METH4TAB10 PO
--- NOTE | 2023-06-20 10:32 | Diagnostic Imaging Report ---
INDICATION: Patient has bilateral hand weakness, numbness and inability to grasp and use hands correctly. EXAM: MRI of the cervical spine performed without IV contrast. Sequences include sagittal T2, sagittal T1, sagittal T2 fat-sat, and axial T2. COMPARISON: CT scan of the head and cervical spine without contrast dated 09/03/2017. FINDINGS: There is no acute cervical spine fracture or dislocation. The vertebral body heights and intervertebral disk heights are maintained. There is no abnormal Modic degenerative signal. Limited visualization of posterior fossa is unremarkable. Cervical spinal cord is of normal cord caliber with no abnormal signal. There is no significant paraspinal soft tissue abnormality. C1-C2: Unremarkable. C2-C3: Unremarkable. C3-C4: Unremarkable. C4-C5: Unremarkable. C5-C6: Unremarkable. C6-C7: Unremarkable. C7-T1: Unremarkable. IMPRESSION: Unremarkable MRI of the cervical spine. Dictated by: Dictated on workstation # [id number]
--- NOTE | 2023-06-20 10:42 | Diagnostic Imaging Report ---
EXAM: MRI THORACIC SPINE W/O CON INDICATION: Back pain. COMPARISON: None. FINDINGS: Normal alignment. Vertebral body heights preserved. Normal bone marrow signal. No substantial spondylotic change. No abnormal signal in the thoracic spinal cord. No spinal canal or neural foraminal narrowing. The visualized paravertebral soft tissues are unremarkable. IMPRESSION: Normal thoracic spine MRI. No acute findings or neural impingement. No abnormal signal in the thoracic spinal cord. Dictated by: Dictated on workstation # [id number]
--- NOTE | 2023-06-20 10:48 | Diagnostic Imaging Report ---
PROCEDURE: MRI lumbar spine. TECHNIQUE: Multiplanar, multisequence MRI of the lumbar spine was performed without contrast. INDICATION: Low back pain with lumbar radiculopathy. COMPARISON: None. FINDINGS: There are 5 lumbar-type vertebral bodies for the purposes of this report. Normal alignment. Vertebral body heights preserved. Normal bone marrow signal. No abnormal signal in the conus which terminates at L1. Normal morphology of the cauda equina. The visualized pelvis and paravertebral soft tissues are unremarkable. L1-L2: Normal. L2-L3: Normal. L3-L4: Mild facet arthropathy. Mild bilateral neural foraminal narrowing. No spinal canal or lateral recess narrowing. L4-L5: Broad-based disc bulging and facet arthropathy result in moderate bilateral neural foraminal narrowing. No spinal canal or lateral recess narrowing. L5-S1: Central disc protrusion contacts the traversing S1 nerve roots. No significant spinal canal narrowing. Moderate bilateral neural foraminal narrowing. IMPRESSION: 1. Central disc protrusion at L5-S1 contacts the traversing bilateral S1 nerve roots, right greater than left. 2. Moderate bilateral neural foraminal narrowing at L4-L5 and L5-S1. 3. No acute osseous findings. No high-grade spinal canal stenosis. Dictated by: Dictated on workstation # [id number]
== END ==
LOC: RAD 08:22
PROVIDERS: ATTEND Nurse Practitioner Family
DX: M51.17 Intervertebral disc disorders with radiculopathy, lumbosacral region (principal); M48.061 Spinal stenosis, lumbar region without neurogenic claudication; M48.07 Spinal stenosis, lumbosacral region
CPT/HCPCS: 72141; 72146; 72148